=== PATIENT | female | born 1990 | race Caucasian/White ===

== ENCOUNTER 2016-05-09 05:49 | Emergency (ER) | payer OTHER ==
[2016-05-09 06:02] VITALS: O2SAT 98
[2016-05-09] MEDS ORDERED: BENADRYL 50 MG/ML IV ONE (06:05)
[2016-05-09] MEDS ORDERED: Sodium Chloride 0.9% 1000 ML 1,000 ML IV STA (06:05)
[2016-05-09] MEDS ORDERED: TORAdol 30 mg Injection IV ONE (06:05)
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
[2016-05-09] MEDS ORDERED: BENADRYL 50 MG/ML ONE (06:14)
[2016-05-09] MEDS ORDERED: TORAdol 30 mg Injection ONE (06:14)
[2016-05-09] MEDS ORDERED: Sodium Chloride 0.9% 1000 ML 1,000 ML ONE (06:15)
[2016-05-09 06:59] VITALS: BP 106/78; PULSE 68
[2016-05-09] MEDS ORDERED: NORCO 5/325 MG ONE (07:05)
[2016-05-09] MEDS: NORCO 5/325 MG PO ONE ×2 (07:06→07:23)
== END 2016-05-09 07:15 | disposition home or self-care (01) ==
LOC: ED 05:49
DX: G43.909 Migraine, unspecified, not intractable, without status migrainosus (principal)
CPT/HCPCS: 36000; 36415; 84703; 96360; 96374; 96375; 99283; J1200; J1885

== ENCOUNTER 2016-08-29 21:52 | Emergency (ER) | payer MEDICAID ==
--- NOTE | 2016-08-29 22:47 | ERPHSYRPT ---
- History of Present Illness Time Seen by Provider: 08/29/16 22:34 Historian: patient Exam Limitations: no limitations Patient Subjective Stated Complaint: pt states she has been having abd pain for the past 2-3 days. states it feels like labor pain at times. Triage Nursing Assessment: pt alert and oriented, answers questions approp. pt ambulatory with steady gait noted. respirations nonlabored with lungs cta. bowel sounds present in all 4 quads. heart tones to be done. Physician History: The patient is a female at 17 weeks complaining of 3 days of abdominal cramping with some sharp episodes of pain. She states "something is big wrong. " The patient has been vomiting 2-3 times daily. She takes no Phenergan or Zofran. Her mother thinks she might be dehydrated. Timing/Duration: day(s) (3) Activities at Onset: none Quality: cramping, sharpness Abdominal Pain Onset Location: RUQ, LUQ Pain Radiation: no radiation Severity of Pain-Max: mild Severity of Pain-Current: mild Modifying Factors: Improves With: nothing Associated Symptoms: nausea, vomiting Previous symptoms: different symptoms Allergies/Adverse Reactions: codeine [Codeine] Adverse Reaction (Intermediate, Verified 08/29/16 22:31) Vomiting PT STATES SHE CAN TAKE LORTABS WITHOUT PROBLEMS. Home Medications: No Home Meds 1 [facility] UD 12/10/13 [History] Hx Tetanus, Diphtheria Vaccination/Date Given: Yes Hx Influenza Vaccination/Date Given: No Hx Pneumococcal Vaccination/Date Given: No Immunizations Up to Date: Yes - Review of Systems Constitutional: No Fever, No Chills Eyes: No Symptoms Ears, Nose, & Throat: No Symptoms Respiratory: No Cough, No Dyspnea Cardiac: No Chest Pain, No Edema, No Syncope Abdominal/Gastrointestinal: Abdominal Pain, Vomiting Genitourinary Symptoms: No Dysuria Musculoskeletal: No Back Pain, No Neck Pain Skin: No Rash Neurological: No Dizziness, No Focal Weakness, No Sensory Changes Psychological: No Symptoms Endocrine: No Symptoms Hematologic/Lymphatic: No Symptoms Immunological/Allergic: No Symptoms All Other Systems: Reviewed and Negative - Past Medical History Pertinent Past Medical History: No Neurological History: No Pertinent History ENT History: No Pertinent History Cardiac History: No Pertinent History Respiratory History: No Pertinent History Endocrine Medical History: No Pertinent History Musculoskeletal History: No Pertinent History GI Medical History: No Pertinent History History: No Pertinent History Psycho-Social History: No Pertinent History Female Reproductive Disorders: No Pertinent History Other Medical History: over active lymph nodes - Past Surgical History Past Surgical History: Yes Neuro Surgical History: No Pertinent History Cardiac: No Pertinent History Respiratory: No Pertinent History Gastrointestinal: No Pertinent History Genitourinary: No Pertinent History Musculoskeletal: No Pertinent History Female Surgical History: Dilation & Curettage, Section, Other Other Surgical History: LYMPH NODE REMOVAL. TONSILLECTOMY - Social History Smoking Status: Current every day smoker How long have you smoked: YRS Exposure to second hand smoke: Yes Drug Use: none Patient Lives Alone: No - Female History Hx Now: No Expected Date of Delivery: 02/04/17 Gestational Age: 17 weeks - Nursing Vital Signs Nursing Vital Signs: Initial Vital Signs Temperature 98.6 F Temperature Source Oral Pulse Rate 80 Respiratory Rate 16 Blood Pressure [Right Arm] 129/78 Pain Intensity 10 - Physical Exam General Appearance: no apparent distress, alert Eye Exam: PERRL/EOMI, eyes nml inspection Ears, Nose, Throat Exam: normal ENT inspection, pharynx normal, moist mucous membranes Neck Exam: normal inspection, non-tender, supple, full range of motion Respiratory Exam: normal breath sounds, lungs clear, No respiratory distress Cardiovascular Exam: regular rate/rhythm, normal heart sounds Gastrointestinal/Abdomen Exam: tenderness (RUQ and LUQ) Pelvic Exam: not done Rectal Exam: not done Back Exam: normal inspection, normal range of motion, No CVA tenderness, No vertebral tenderness Extremity Exam: normal inspection, normal range of motion, pelvis stable Neurologic Exam: alert, oriented x 3, cooperative, normal mood/affect, nml cerebellar function, sensation nml, No motor deficits Skin Exam: normal color, warm, dry SpO2 Interpretation: normal SpO2: 97 Oxygen Delivery: Room Air Ordered Tests: Active Orders 24 hr Category Date Time Status Clean Catch Urine Specimen STAT Care 08/29/16 23:14 Active Heart Tones-ED STAT Care 08/29/16 23:01 Active IV Insertion STAT Care 08/29/16 23:01 Active BMP Stat Lab 08/29/16 23:13 Completed CBC W DIFF Stat Lab 08/29/16 23:13 Completed UA W/ MICROSCOPIC Stat Lab 08/29/16 23:13 Completed Medication Summary Discontinued Medications Generic Name Dose Route Start Last Admin Trade Name Freq PRN Reason Stop Dose Admin Sodium Chloride 1,000 mls @ 999 mls/hr 08/29/16 23:01 08/29/16 23:14 Sodium Chloride 0.9% 1000 Ml IV 08/30/16 00:01 999 mls/hr .Q1H1M STA Administration Sodium Chloride Confirm 08/29/16 23:04 Sodium Chloride 0.9% 1000 Ml Administered 08/29/16 23:05 Dose 1,000 mls @ ud .ROUTE .STK-MED ONE Lab/Rad Data: Laboratory Result Diagrams 08/29/16 23:13 08/29/16 23:13 Laboratory Results 08/29/16 08/29/16 08/29/16 Range/Units 23:13 23:13 23:13 WBC 10.7 H (4.0-10.5) K/mm3 RBC 3.78 L (4.1-5.4) M/mm3 Hgb 12.2 (12.0-16.0) gm/dl Hct 35.6 (35-47) % MCV 94.2 (78-100) fl MCH 32.2 H (26-32) pg MCHC 34.3 (32-36) g/dl RDW 13.1 (11.5-14.0) % Plt Count 250 (150-450) K/mm3 MPV 9.5 (6-9.5) fl Gran % 74.3 H (36.0-66.0) % Lymphocytes % 18.5 L (24.0-44.0) % Monocytes % 5.6 (0.0-12.0) % Eosinophils % 1.5 (0.00-5.0) % Basophils % 0.1 (0.0-0.4) % Basophils # 0.01 (0-0.4) Sodium 139 (136-145) mEq/L Potassium 3.6 (3.5-5.1) mEq/L Chloride 105 (98-107) mEq/L Carbon Dioxide 24.6 (21-32) mEq/L Anion Gap 13.1 (5-15) MEQ/L BUN 5 L (9-20) mg/dL Creatinine 0.44 L (0.55-1.30) mg/dl Estimated GFR > 60 ML/MIN Glucose 88 (70-110) MG/DL Calcium 8.6 (8.5-10.1) mg/dL Ur Collection Type CLEAN CATCH Urine Color YELLOW (YELLOW) Urine Appearance SLIGHTLY CLOUDY (CLEAR) Urine pH 6.5 (5-6) Ur Specific [place] 1.015 (1.005-1.025) Urine Protein NEGATIVE (Negative) Urine Glucose (UA) NEGATIVE (NEGATIVE) mg/dL Urine Ketones NEGATIVE (NEGATIVE) Urine Nitrite NEGATIVE (NEGATIVE) Urine Bilirubin NEGATIVE (NEGATIVE) Urine Urobilinogen 0.2 (0-1) mg/dL Urine WBC (Auto) TRACE (NEGATIVE) Urine RBC (Auto) NEGATIVE (0-5) Mike/ul Urine Microscopic RBC 2-5 (0-2) /HPF Urine Microscopic WBC 5-10 (0-5) /HPF Ur Epithelial Cells MANY (FEW) /HPF Urine Bacteria MODERATE (NEGATIVE) /HPF Urine Mucus SLIGHT (NEGATIVE) /HPF Specimen Received 08/29/165 - Progress Progress: improved Progress Note: 08/29/16 23:02 FHT steady and strong at 154 BPM. 08/30/16 00:03 After 1 L of normal saline IV fluids, the patient is feeling better. Patient wishes to go home. She will contact Dr. Lee in the morning if needed. Counseled pt/family regarding: lab results, diagnosis, need for follow-up - Departure Time of Disposition: 00:05 Departure Disposition: Home Clinical Impression: Dehydration, , Abdominal pain Condition: Stable Critical Care Time: No Additional Instructions: You have mild dehydration and abdominal cramping and pain. You were given 1 L of normal saline by IV in the ER. You declined Zofran and Phenergan. Contact Dr. Lee tomorrow morning for follow-up.
[2016-08-29] MEDS ORDERED: Sodium Chloride 0.9% 1000 ML 1,000 ML IV STA (23:01)
[2016-08-29] MEDS ORDERED: Sodium Chloride 0.9% 1000 ML 1,000 ML ONE (23:04)
[2016-08-29 23:17] LABS: BASOPHIL % 0.1 % (0.0-0.4); Eosinophil % 1.5 % (0.00-5.0); Granulocytes % 74.3 % (36.0-66.0); Lymphocytes % 18.5 % (24.0-44.0); Mean Cell Volume 94.2 fl (78-100); Mean Corpuscular Hemoglobin 32.2 pg (26-32); Mean Platelet Volume 9.5 fl (6-9.5); Monocytes % 5.6 % (0.0-12.0); Platelet Count 250 K/mm3 (150-450); Red Blood Count 3.78 M/mm3 (4.1-5.4); Red Cell Distribution Width 13.1 % (11.5-14.0); White Blood Count 10.7 K/mm3 (4.0-10.5)
[2016-08-29 23:30] LABS: Collection Type CLEAN CATCH
[2016-08-29 23:31] LABS: ANION GAP 13.1 MEQ/L (5-15); BLOOD UREA NITROGEN 5 mg/dL (9-20); Bacteria MODERATE /HPF (NEGATIVE); CHLORIDE 105 mEq/L (98-107); COMPLETE URINE MICROSCOPIC? YES; Carbon Dioxide 24.6 mEq/L (21-32); Epithelial Cells MANY /HPF (FEW); Glucose 88 MG/DL (70-110); Mucus SLIGHT /HPF (NEGATIVE); Ph 6.5 (5-6); Potassium 3.6 mEq/L (3.5-5.1); SODIUM 139 mEq/L (136-145)
[2016-08-30 00:07] VITALS: O2SAT 97
[2016-08-30 00:27] VITALS: BP 120/84; PULSE 82
== END 2016-08-30 00:25 | disposition home or self-care (01) ==
LOC: ED 21:52
DX: O21.1 Hyperemesis gravidarum with metabolic disturbance (principal); Z3A.17 17 weeks gestation of pregnancy; E86.0 Dehydration; R10.11 Right upper quadrant pain; R10.12 Left upper quadrant pain; R10.13 Epigastric pain
CPT/HCPCS: 36000; 36415; 80048; 81000; 85025; 96360; 99284

== ENCOUNTER 2016-12-13 17:05 | Observation (INO) | payer MEDICAID ==
[2016-12-13 17:56] VITALS: O2SAT 97
[2016-12-13] MEDS ORDERED: Celestone Soluspan 6MG/ML IM SCH (18:45)
[2016-12-13 19:18] LABS: Bilirubin NEGATIVE (NEGATIVE); Blood NEGATIVE Ery/ul (0-5); COMPLETE URINE MICROSCOPIC? NO; Collection Type CLEAN CATCH; Glucose NEGATIVE (NEGATIVE); Leukocyte Esterase NEGATIVE (NEGATIVE)
[2016-12-13] MEDS ORDERED: MAG-OX 400 PO SCH (21:00)
[2016-12-13] MEDS ORDERED: Ambien 10 MG PO SCH (22:00)
[2016-12-14 08:14] VITALS: BP 117/60; PULSE 86
--- NOTE | 2016-12-14 08:59 | XRAY ---
Indication: Contractions. Evaluate cervical length. Limited transvaginal pelvic ultrasound performed to evaluate cervical length. Cervix is closed and measures 4.1 cm. Comment: Preliminary report was given.
== END 2016-12-14 09:28 | disposition home or self-care (01) ==
LOC: OB 17:05 → UNDODISOB 12-14 08:55
PROVIDERS: ADMIT Family Medicine; ATTEND Family Medicine
DX: Z34.83 Encounter for supervision of other normal pregnancy, third trimester (principal)
CPT/HCPCS: 36415; 76817; 80307; 81002; 83735; 96372; G0378; J0702; A9270-GY

== ENCOUNTER 2017-01-06 18:31 | Observation (INO) | payer MEDICAID ==
[2017-01-06 20:16] VITALS: O2SAT 88
[2017-01-06 20:36] LABS: Bilirubin NEGATIVE (NEGATIVE); Blood NEGATIVE Ery/ul (0-5); Collection Type CLEAN CATCH; Glucose NEGATIVE (NEGATIVE); Leukocyte Esterase NEGATIVE (NEGATIVE)
[2017-01-06 20:37] LABS: COMPLETE URINE MICROSCOPIC? NO
[2017-01-06 21:10] VITALS: BP 121/71
[2017-01-06] MEDS ORDERED: PROCARDIA 10 MG PO STA (21:10)
[2017-01-06] MEDS ORDERED: Ambien 5 MG Tablet PO SCH (23:00)
[2017-01-06] MEDS ORDERED: Ambien 5 MG Tablet ONE (23:50)
[2017-01-07] MEDS ORDERED: PATIENT OWN MEDICATION PO SCH (10:00)
[2017-01-07] MEDS ORDERED: Ambien 5 MG Tablet PO ONE (23:51)
== END 2017-01-07 08:55 | disposition home or self-care (01) ==
LOC: MED SURG 18:31 → OB 18:31
PROVIDERS: ADMIT Family Medicine; ATTEND Family Medicine
DX: Z34.83 Encounter for supervision of other normal pregnancy, third trimester (principal)
CPT/HCPCS: 80307; 81002; G0378; A9270-GY

== ENCOUNTER 2017-01-31 05:06 | Inpatient (IN) | payer MEDICAID ==
[2017-01-31] MEDS ORDERED: Lactated Ringers 1,000 ML IV ONE ×2 (05:27→09:05)
[2017-01-31] MEDS ORDERED: Reglan 10 MG/2 ML IV SCH (05:30)
[2017-01-31] MEDS ORDERED: Pepcid 20 MG VIAL IV SCH (05:30)
[2017-01-31] MEDS ORDERED: Lactated Ringers 1,000 ML IV SCH (05:30)
[2017-01-31] MEDS ORDERED: BICITRA 30 ML CUP PO SCH (05:30)
[2017-01-31 05:47] LABS: Mean Cell Volume 96.1 fl (78-100); Mean Corpuscular Hemoglobin 33.3 pg (26-32); Mean Platelet Volume 10.2 fl (6-9.5); Platelet Count 263 K/mm3 (150-450); Red Blood Count 3.84 M/mm3 (4.1-5.4); Red Cell Distribution Width 14.2 % (11.5-14.0); White Blood Count 14.5 K/mm3 (4.0-10.5)
[2017-01-31 06:05] LABS: INR 0.96 (0.8-3.0); PROTIME 10.7 SECONDS (9.95-12.35)
[2017-01-31 06:07] LABS: PTT 27.3 SECONDS (25.3-37.0)
[2017-01-31] MEDS ORDERED: KEFZOL 1 GM ONE (06:21)
[2017-01-31 06:42] LABS: Bacteria MODERATE /HPF (NEGATIVE); Bilirubin NEGATIVE (NEGATIVE); Blood 50 Ery/ul (0-5); COMPLETE URINE MICROSCOPIC? YES; Collection Type VOID; Epithelial Cells FEW /HPF (FEW); Glucose NEGATIVE (NEGATIVE); Leukocyte Esterase 2+ (NEGATIVE); Mucus SLIGHT /HPF (NEGATIVE)
[2017-01-31] MEDS ORDERED: CLARITIN 10 MG PO PRN (09:00)
[2017-01-31] MEDS ORDERED: BENADRYL 50 MG/ML IV PRN (09:00)
[2017-01-31] MEDS ORDERED: Narcan 0.4 MG/ML IV PRN (09:00)
[2017-01-31] MEDS ORDERED: MORPHINE SULFATE 2 MG INJ IV PRN (09:00)
[2017-01-31] MEDS ORDERED: Zofran 4 MG/2 ML VIAL IV PRN (09:00)
[2017-01-31] MEDS ORDERED: Nubain 10 MG/ML IV PRN (09:00)
[2017-01-31] MEDS ORDERED: DEMEROL 50 MG IV PRN (09:00)
[2017-01-31] MEDS ORDERED: HOLD NARCOTIC ANALGESICS AND SEDATIVES X24 HR MC PRN (09:00)
[2017-01-31 09:46] LABS: Bilirubin NEGATIVE (NEGATIVE); Collection Type CATH; Glucose NEGATIVE (NEGATIVE); Leukocyte Esterase TRACE (NEGATIVE)
[2017-01-31] MEDS ORDERED: Restoril 15 MG PO PRN (10:00)
[2017-01-31] MEDS ORDERED: Adacel Vial IM ONE (10:00)
[2017-01-31] MEDS ORDERED: Anucort-HC SUPPOSITORY PR PRN (10:00)
[2017-01-31] MEDS ORDERED: Mylicon 80MG PO PRN (10:00)
[2017-01-31] MEDS ORDERED: CORTISONE 1% CREAM TP PRN (10:00)
[2017-01-31] MEDS ORDERED: Ambien 10 MG PO PRN (10:00)
[2017-01-31 10:11] LABS: COMPLETE URINE MICROSCOPIC? YES
--- NOTE | 2017-01-31 11:26 | OP ---
SURGERY DATE/TIME: 01/31/201711 PREOPERATIVE DIAGNOSES: 1) Term intrauterine . 2) Previous section. 3) Undesired fertility. POSTOPERATIVE DIAGNOSES: 1) Term intrauterine . 2) Previous section. 3) Undesired fertility. 4) Delivered. PROCEDURES: 1) Repeat lower uterine segment transverse incision section. 2) Bilateral tubal ligation by partial salpingectomy. SURGEON: Dr. Lee. ANESTHESIA: Spinal. HISTORY: The patient is a 26 year old white female now presenting for elective repeat section. She is at term. She was appraised of the risks of the procedure including the risk of wound infection, bleeding requiring transfusion, possible injury to any intra-abdominal organs and a failure rate of the tubal procedure 1:300. The patient verbalized her understanding and desired to have the procedure performed. DESCRIPTION OF PROCEDURE: The patient was prepped and draped in the supine position. After adequate regional anesthesia was confirmed, a Pfannenstiel incision was made over the previous scar and carried down sharply through the fascia which was divided in a horizontal fashion. The rectus muscles were then bluntly and sharply dissected away from the overlying fascia and 0bluntly retracted laterally. The peritoneal cavity was then entered. A bladder flap was developed and the bladder was retracted inferiorly. The uterus was scored in a horizontal fashion and entered in the midline and extended with bandage scissors. A white male was delivered through the abdominal wound. The cord was doubly clamped and divided between the clamps. The baby was handed off for further care. The placenta was then manually removed from the uterus. The uterus was exteriorized and wrapped in moist gauze. The wound edges were reapproximated using 1-0 chromic suture in a running, interlocking fashion. The left fallopian tube was then identified and elevated with Rienzi clamp. Hemostat was passed in avascular section of mesosalpinx the tube was tied on either side of the side of the elevated area and the interceding section was then excised. The exposed edges of the tube were cauterized using Bovie. The right tube was then similarly treated. The uterus was then replaced in the abdominal cavity after the cul-de-sac area was swabbed clear of blood and amniotic fluid. Paracolic gutters were also swabbed clear of blood of amniotic fluid. The peritoneum was then repaired using 3-0 chromic sutures in a running fashion. The fascia was repaired using 0 Vicryl suture in running fashion and the skin edges were reapproximated using 4-0 Vicryl sutures in subcuticular fashion and reinforced with Steri-Strips. The sponge, needle and instrument counts were reported as correct at the end of the procedure. The patient received 2 gm of Cefazolin intraoperatively after the cord was clamped. Estimated blood loss was 300 cc. The patient was taken back to the recovery room in good condition.
[2017-01-31] MEDS: FERREX 150 PO SCH (11:29)
[2017-01-31] MEDS: Colace 100 MG PO SCH ×2 (11:29→22:04)
[2017-01-31] MEDS: PERCOCET TABLET 5/325MG PO PRN ×2 (11:39→23:46)
[2017-01-31] MEDS: Dextrose 5%-Lr IV Solution 1000 ML 1,000 ML IV SCH (15:00)
[2017-01-31] MEDS ORDERED: SUBLIMAZE 100 MCG/2 ML IV ONE (16:10)
[2017-01-31] MEDS ORDERED: MORPHINE SULFATE 10 MG/ML IV ONE (16:10)
[2017-01-31] MEDS ORDERED: Zofran 4 MG/2 ML VIAL IV ONE (16:13)
[2017-01-31] MEDS ORDERED: Decadron 4 MG INJ IV ONE (16:13)
[2017-01-31] MEDS ORDERED: Pitocin 10 UNITS/ML IV ONE (16:13)
[2017-01-31] MEDS ORDERED: Naropin 0.5% 30 ML VIAL IJ ONE (16:13)
[2017-01-31] MEDS ORDERED: Phenergan 25 MG INJ IV ONE (16:56)
[2017-01-31] MEDS: NICODERM CQ 14 MG TOP SCH (22:04)
[2017-02-01] MEDS: Dextrose 5%-Lr IV Solution 1000 ML 1,000 ML IV SCH (00:17)
[2017-02-01] MEDS: MOTRIN 400 MG PO PRN ×2 (05:19→18:09)
[2017-02-01 05:29] LABS: Mean Cell Volume 99.1 fl (78-100); Mean Corpuscular Hemoglobin 32.8 pg (26-32); Mean Platelet Volume 9.8 fl (6-9.5); Platelet Count 227 K/mm3 (150-450); Red Cell Distribution Width 14.4 % (11.5-14.0)
[2017-02-01] MEDS: PERCOCET TABLET 5/325MG PO PRN (07:30)
[2017-02-01] MEDS ORDERED: Phenergan 25 MG INJ IM PRN (09:00)
[2017-02-01] MEDS ORDERED: DEMEROL 75 MG IM PRN (09:00)
[2017-02-01] MEDS: FERREX 150 PO SCH (11:34)
[2017-02-01] MEDS: Colace 100 MG PO SCH ×2 (11:34→22:10)
[2017-02-01] MEDS: NORCO 5/325 MG PO PRN ×2 (15:29→19:49)
[2017-02-01 20:12] VITALS: O2SAT 91
[2017-02-01] MEDS: NICODERM CQ 14 MG TOP SCH (22:10)
[2017-02-02] MEDS: NORCO 5/325 MG PO PRN ×3 (05:05→11:58)
[2017-02-02] MEDS: MOTRIN 400 MG PO PRN (07:49)
--- NOTE | 2017-02-02 08:16 | DS ---
DISCHARGE DIAGNOSIS: SECTION DELIVERY TERM INTRAUTERINE . HOSPITAL COURSE: The patient is a 26 year-old white female presented for elective repeat section. She also wished to have a tubal ligation performed and this was done on 01/31/2017. The patient has done well postoperatively. She has been afebrile with stable vital signs. The wound has looked good. She is felt to be ready for discharge home by the morning of 02/02/2017. Discharge plans are for her to follow up in the office in one week. She was given Chantix for her attempts to stop smoking as well as nicotine patch. She was given [place] for pain relief. She was instructed to call us if she has any problems in the interim.
[2017-02-02 09:20] VITALS: BP 134/82; PULSE 88
[2017-02-02] MEDS: FERREX 150 PO SCH (10:11)
[2017-02-02] MEDS: Colace 100 MG PO SCH (10:11)
== END 2017-02-02 12:45 | disposition home or self-care (01) | DRG 766 ==
LOC: OB 05:06
PROVIDERS: ADMIT Family Medicine; ATTEND Family Medicine
PROC: 0UB70ZZ Excision of Bilateral Fallopian Tubes, Open Approach (ICD-10-PCS; principal; 2017-01-31)
PROC: 10D00Z1 Extraction of Products of Conception, Low, Open Approach (ICD-10-PCS; 2017-01-31)
DX: O34.211 Maternal care for low transverse scar from previous cesarean delivery (principal); Z3A.39 39 weeks gestation of pregnancy; Z37.0 Single live birth; Z30.2 Encounter for sterilization
CPT/HCPCS: 01961; 36415; 64425; 76942; 80307; 81000; 81002; 85027; 85610; 85730; 86850; 86900; 86901; 87086; 88302; 90471; 90715; 94799; J0690; J1100; J2270; J2405; J2550; J2590; J2795; J3010; L0625; A9270-GY

== ENCOUNTER 2017-10-05 17:57 | Emergency (ER) | payer OTHER ==
[2017-10-05 18:12] VITALS: BP 101/82
--- NOTE | 2017-10-05 18:42 | ERPHSYRPT ---
- History of Present Illness Time Seen by Provider: 10/05/17 18:32 Source: patient Exam Limitations: no limitations Patient Subjective Stated Complaint: pt reports she turned quick[place] and accidently hit her rigth hand on a machete-reports pain and lac Triage Nursing Assessment: pt presents to ed anxious upset and holding hands- hands clearned and lac to finger of right hand noted with ableeding controlled Physician History: This is a 27-year-old white female she arrives with complaint of a laceration to her dorsal distal right fourth finger 20 minutes prior to arrival. she states that she accidentally struck her finger on a machete. She has no problems moving her finger sensation is intact. Patient's last tetanus was in January 2017. Past surgical history includes D&C, , lymph node, tonsillectomy and adenoidectomy Occurred: just prior to arrival (22 minutes prior to arrival) Method of Injury: incised (accidentally struck on a machete) Severity of Pain-Max: mild Severity of Pain-Current: mild Extremities Pain Location: 4th finger: right (rright dorsal distal fourth finger ) Modifying Factors: Improves With: nothing Associated Symptoms: none Allergies/Adverse Reactions: codeine [Codeine] Adverse Reaction (Mild, Verified 10/05/17 18:12) Vomiting Home Medications: No Reportable Medications [No Reported Medications] 02/01/17 [History] Hx Tetanus, Diphtheria Vaccination/Date Given: No Hx Influenza Vaccination/Date Given: Yes Hx Pneumococcal Vaccination/Date Given: No Immunizations Up to Date: Yes - Review of Systems Constitutional: No Fever, No Chills Eyes: No Symptoms Ears, Nose, & Throat: No Symptoms Respiratory: No Cough, No Dyspnea Cardiac: No Chest Pain, No Edema, No Syncope Abdominal/Gastrointestinal: No Abdominal Pain, No Nausea, No Vomiting, No Diarrhea Genitourinary Symptoms: No Dysuria Musculoskeletal: No Back Pain, No Neck Pain Skin: Other (1 cm laceration right dorsal distal fourth finger) Neurological: No Dizziness, No Focal Weakness, No Sensory Changes Psychological: No Symptoms Endocrine: No Symptoms All Other Systems: Reviewed and Negative - Past Medical History Pertinent Past Medical History: No Neurological History: No Pertinent History ENT History: No Pertinent History Cardiac History: No Pertinent History Respiratory History: No Pertinent History Endocrine Medical History: No Pertinent History Musculoskeletal History: No Pertinent History GI Medical History: No Pertinent History History: No Pertinent History Psycho-Social History: No Pertinent History Female Reproductive Disorders: No Pertinent History Other Medical History: over active lymph nodes - Past Surgical History Past Surgical History: Yes Neuro Surgical History: No Pertinent History Cardiac: No Pertinent History Respiratory: No Pertinent History Gastrointestinal: No Pertinent History Genitourinary: No Pertinent History Musculoskeletal: No Pertinent History Female Surgical History: Dilation & Curettage, Section, Other Other Surgical History: LYMPH NODE REMOVAL. TONSILLECTOMY. D&C - Social History Smoking Status: Current every day smoker How long have you smoked: yrs Exposure to second hand smoke: No Drug Use: none Patient Lives Alone: No - Female History Hx Last Menstrual Period: yesterday Hx Now: No - Nursing Vital Signs Nursing Vital Signs: Initial Vital Signs Temperature 97.8 F 10/05/17 18:08 Pulse Rate 74 10/05/17 18:08 Respiratory Rate 18 10/05/17 18:08 Blood Pressure 101/82 10/05/17 18:08 O2 Sat by Pulse Oximetry 97 10/05/17 18:08 Pain Scale Pain Intensity 8 - Physical Exam General Appearance: alert Eyes, Ears, Nose, Throat Exam: moist mucous membranes Neck Exam: non-tender, supple Cardiovascular/Respiratory Exam: chest non-tender, normal breath sounds, regular rate/rhythm, no respiratory distress Abdominal Exam: non-tender, No guarding Back Exam: normal inspection, No vertebral tenderness Shoulder Exam: normal inspection, non-tender, no evidence of injury, normal ROM Elbow/Forearm Exam: normal inspection, non-tender, no evidence of injury, normal ROM Wrist Exam: normal inspection, non-tender, no evidence of injury, normal ROM Hand Exam: laceration (1 cm laceration right dorsal distal fourth finger) Neuro/Tendon Exam: normal sensation, normal motor functions Mental Status Exam: alert, oriented x 3, cooperative SpO2 Interpretation: normal (97%) SpO2: 97 Oxygen Delivery: Room Air - Course Nursing assessment & vital signs reviewed: Yes Ordered Tests: Active Orders 24 hr Category Date Time Status Wound Care STAT Care 10/05/17 18:36 Active - Progress Progress: improved Progress Note: 10/05/17 18:41 27-year-old white female arrives with complaint of laceration to the right dorsal distal fourth finger she accidentally hit it on a machete approximately 20 minutes prior to arrival. She has full range of motion to all fingers sensation intact to all fingers she has a 1 cm laceration to the dorsal distal fourth finger. Dizzy good capillary refill to all fingers. Patient was not sure of her last tetanus however records show that she had a tetanus here in the emergency room January 2017. Nurses have clean the area. Will have nurses go ahead and sterilely scrubbed it and applied Dermabond patient will be able to be released. - Departure Time of Disposition: 18:42 Departure Disposition: Home Clinical Impression: Finger laceration Qualifiers: Encounter type: initial encounter Finger: ring finger Damage to nail status: without damage Foreign body presence: without foreign body Laterality: right Qualified Code(s): S61.214A - Laceration without foreign body of right ring finger without damage to nail, initial encounter Condition: Fair Critical Care Time: No Referrals: ROSSI COOPER [Primary Care Provider] - Instructions: Laceration Repair With Glue (DC) Additional Instructions: Return home. Keep area clean and dry. Do not soak area. Do not apply ointments to area. Follow-up with your family doctor or return if signs of infection or problems. Tylenol every 4 hours as needed for pain.
[2017-10-05 19:07] VITALS: PULSE 97; O2SAT 99
== END 2017-10-05 19:08 | disposition home or self-care (01) ==
LOC: ED 17:57
DX: S61.214A Laceration without foreign body of right ring finger without damage to nail, initial encounter (principal); Z72.0 Tobacco use; W26.0XXA Contact with knife, initial encounter; W45.8XXA Other foreign body or object entering through skin, initial encounter; W22.8XXA Striking against or struck by other objects, initial encounter
CPT/HCPCS: 99283

== ENCOUNTER 2017-11-27 17:50 | Emergency (ER) | payer OTHER ==
[2017-11-27 18:51] LABS: Appearance CLOUDY (CLEAR); Bilirubin NEGATIVE (NEGATIVE); Blood 50 Ery/ul (0-5); Glucose NEGATIVE (NEGATIVE); Ketones NEGATIVE (NEGATIVE); Leukocyte Esterase 2+ (NEGATIVE); Nitrite NEGATIVE (NEGATIVE); Protein,Urine Dip 30 (Negative); Urobilinogen NORMAL mg/dL (0-1)
[2017-11-27 18:52] LABS: Bacteria MODERATE /HPF (NEGATIVE); Epithelial Cells FEW /HPF (FEW); RBC 25-50 /HPF (0-2); WBC 25-50 /HPF (0-5)
[2017-11-27] MEDS ORDERED: TORAdol 30 mg Injection IV ONE (19:14)
[2017-11-27] MEDS ORDERED: Sodium Chloride 0.9% 1000 ML 1,000 ML IV STA (19:14)
--- NOTE | 2017-11-27 19:20 | ERPHSYRPT ---
- History of Present Illness Time Seen by Provider: 11/27/17 19:10 Historian: patient Exam Limitations: no limitations Patient Subjective Stated Complaint: pt here for bilat, flank pain for 2 days worse the lst 5 hours,buring with urination Triage Nursing Assessment: pt alert, resp easy, skin w/d/p, abd soft Physician History: 27-year-old white female arrives with Cipro give Tylenol pain bilateral flank pain symptoms times several weeks. She does state that she was seen by her family doctor placed on Flagyl about a week ago. Patient states she does have some dysuria no melena no hematochezia no diarrhea no vomiting, Past medical history includes over active lymph node past surgical history includes D&C, , lymph node removed, tubal ligation. Timing/Duration: day(s) (2 days) Activities at Onset: none Quality: cramping Abdominal Pain Onset Location: suprapubic, other (bilateral flanks) Pain Radiation: no radiation Severity of Pain-Max: moderate Severity of Pain-Current: moderate Modifying Factors: Improves With: palpation, urinating. Worsens With: analgesics, antacids, breathing, coughing, defecating, eating, exercise, lying down, rest, vomiting, position, walking Associated Symptoms: back (bilateral flank pain), No chest pain, No diaphoresis , No diarrhea, No fever/chills, No fatigue, No headache, No heartburn, No loss of appetite, No nausea, No neck pain, No rash, No shortness of breath, No syncope, No vomiting, No weakness Previous symptoms: no prior history Allergies/Adverse Reactions: codeine [Codeine] Adverse Reaction (Mild, Verified 11/27/17 18:19) Vomiting Home Medications: Loratadine 10 mg [Claritin 10 mg] 10 mg DAILY 11/27/17 [History] Metronidazole [Flagyl] 250 mg TID 11/27/17 [History] Hx Tetanus, Diphtheria Vaccination/Date Given: No Hx Influenza Vaccination/Date Given: No Hx Pneumococcal Vaccination/Date Given: No Immunizations Up to Date: Yes - Review of Systems Constitutional: No Fever, No Chills Eyes: No Symptoms Ears, Nose, & Throat: No Symptoms Respiratory: No Cough, No Dyspnea Cardiac: No Chest Pain, No Edema, No Syncope Abdominal/Gastrointestinal: Abdominal Pain (Bilateral lower abdominal pain, suprapubic pain), No Vomiting, No Diarrhea, No Constipation, No Hematemesis, No Hematochezia, No Melena, No Dysphagia Genitourinary Symptoms: Dysuria, No Frequency, No Hematuria, No Hesitancy, No Incontinence, No Urgency, No Urinary Retention, No Flank Pain, No Menorrhagia, No , No Vaginal Bleeding, No Vaginal Discharge, No Vaginal Itching Musculoskeletal: No Back Pain, No Neck Pain Skin: No Rash Neurological: No Dizziness, No Focal Weakness, No Sensory Changes Psychological: No Symptoms Endocrine: No Symptoms All Other Systems: Reviewed and Negative - Past Medical History Pertinent Past Medical History: No Neurological History: No Pertinent History ENT History: No Pertinent History Cardiac History: No Pertinent History Respiratory History: No Pertinent History Endocrine Medical History: No Pertinent History Musculoskeletal History: No Pertinent History GI Medical History: No Pertinent History History: No Pertinent History Psycho-Social History: No Pertinent History Female Reproductive Disorders: No Pertinent History Other Medical History: over active lymph nodes - Past Surgical History Past Surgical History: Yes Neuro Surgical History: No Pertinent History Cardiac: No Pertinent History Respiratory: No Pertinent History Gastrointestinal: No Pertinent History Genitourinary: No Pertinent History Musculoskeletal: No Pertinent History Female Surgical History: Dilation & Curettage, Section, Other Other Surgical History: LYMPH NODE REMOVAL. TONSILLECTOMY. D&C - Social History Smoking Status: Current every day smoker How long have you smoked: yrs Exposure to second hand smoke: Yes Drug Use: none Patient Lives Alone: No - Female History Hx Last Menstrual Period: yesterday Hx Now: No - Nursing Vital Signs Nursing Vital Signs: Initial Vital Signs Temperature 97.7 F 11/27/17 18:14 Pulse Rate 95 H 11/27/17 18:14 Respiratory Rate 16 11/27/17 18:14 Blood Pressure 131/72 11/27/17 18:14 O2 Sat by Pulse Oximetry 98 11/27/17 18:14 Pain Scale Pain Intensity 5 - Physical Exam General Appearance: mild distress Eye Exam: PERRL/EOMI, eyes nml inspection Ears, Nose, Throat Exam: normal ENT inspection, pharynx normal, moist mucous membranes Neck Exam: normal inspection, non-tender, supple, full range of motion Respiratory Exam: normal breath sounds, lungs clear, No respiratory distress Cardiovascular Exam: regular rate/rhythm, normal heart sounds Gastrointestinal/Abdomen Exam: soft, normal bowel sounds, tenderness (bilateral lower abdominal tenderness), No distention, No mass, No guarding, No ecchymosis , No pulsatile mass, No rebound, No hernia, No hepatomegaly, No organomegaly, No splenomegaly Back Exam: normal range of motion, CVA tenderness (Bilateral flank pain with palpation), No vertebral tenderness, No rash, No decreased range of motion, No muscle spasm Extremity Exam: normal inspection, normal range of motion, pelvis stable Neurologic Exam: alert, oriented x 3, cooperative, roll winder II-XII nml as tested, normal mood/affect, nml cerebellar function, sensation nml, No motor deficits Skin Exam: normal color, warm, dry SpO2 Interpretation: normal (98%) SpO2: 98 Oxygen Delivery: Room Air - Course Nursing assessment & vital signs reviewed: Yes Ordered Tests: Active Orders 24 hr Category Date Time Status Clean Catch Urine Specimen STAT Care 11/27/17 18:22 Active IV Insertion STAT Care 11/27/17 19:14 Active AMYLASE Stat Lab 11/27/17 19:14 Completed CBC W DIFF Stat Lab 11/27/17 19:14 Completed CMP Stat Lab 11/27/17 19:14 Completed CULTURE,URINE Stat Lab 11/27/17 18:23 Received HCG QUALITATIVE,SERUM Stat Lab 11/27/17 Completed LIPASE Stat Lab 11/27/17 19:14 Completed UA W/ MICROSCOPIC Stat Lab 11/27/17 18:23 Completed Medication Summary Discontinued Medications Generic Name Dose Route Start Last Admin Trade Name Freq PRN Reason Stop Dose Admin Hydrocodone Bitart/Acetaminophen 2 tab 11/27/17 21:21 [place] 5/325 Mg PO 11/27/17 21:22 SENT HOME W/ PATIENT ONE Sodium Chloride 1,000 mls @ 999 mls/hr 11/27/17 19:14 11/27/17 20:57 Sodium Chloride 0.9% 1000 Ml IV 11/27/17 20:14 Infused .Q1H1M STA Infusion Sodium Chloride Confirm 11/27/17 19:24 Sodium Chloride 0.9% 1000 Ml Administered 11/27/17 19:25 Dose 1,000 mls @ ud .ROUTE .STK-MED ONE Ceftriaxone Sodium/Dextrose 1 g in 50 mls @ 100 mls/hr 11/27/17 19:47 20:58 Rocephin 1 Gm-D5w 50 Ml Bag IV 11/27/17 20:16 Infused STAT STA Infusion Ceftriaxone Sodium/Dextrose Confirm 11/27/17 19:49 Rocephin 1 Gm-D5w 50 Ml Bag Administered 11/27/17 19:50 Dose 1 g in 50 mls @ ud IV .STK-MED ONE Ketorolac Tromethamine 30 mg 11/27/17 19:14 11/27/17 19:30 Toradol 30 Mg Injection IV 11/27/17 19:15 30 mg STAT ONE Administration Ketorolac Tromethamine Confirm 11/27/17 19:24 Toradol 30 Mg Injection Administered 11/27/17 19:25 Dose 30 mg .ROUTE .STK-MED ONE Lab/Rad Data: Laboratory Result Diagrams 11/27/17 19:14 11/27/17 19:14 Laboratory Results 11/27/17 11/27/17 11/27/17 Range/Units Unknown 19:39 19:14 WBC (4.0-10.5) K/mm3 RBC (4.1-5.4) M/mm3 Hgb (12.0-16.0) gm/dl Hct (35-47) % MCV (78-100) fl MCH (26-32) pg MCHC (32-36) g/dl RDW (11.5-14.0) % Plt Count (150-450) K/mm3 MPV (6-9.5) fl Gran % (36.0-66.0) % Eos # (Auto) (0-0.5) Absolute Lymphs (auto) (1.0-4.6) Absolute Monos (auto) (0.0-1.3) Lymphocytes % (24.0-44.0) % Monocytes % (0.0-12.0) % Eosinophils % (0.00-5.0) % Basophils % (0.0-0.4) % Absolute Granulocytes (1.4-6.9) Basophils # (0-0.4) Sodium 141 (137-145) mmol/L Potassium 3.9 (3.5-5.1) mmol/L Chloride 107 (98-107) mmol/L Carbon Dioxide 26 (22-30) mmol/L Anion Gap 12.2 (5-15) MEQ/L BUN 9 (7-17) mg/dL Creatinine 0.62 (0.52-1.04) mg/dL Estimated GFR > 60.0 ML/MIN Glucose 109 H (74-106) mg/dL Calcium 9.7 (8.4-10.2) mg/dL Total Bilirubin 0.80 (0.2-1.3) mg/dL AST 25 (14-36) U/L ALT 37 H (0-35) U/L Alkaline Phosphatase 104 (38-126) U/L Serum Total Protein 7.1 (6.3-8.2) g/dL Albumin 4.5 (3.5-5.0) g/dL Amylase 62 (30-110) U/L Lipase 46 (23-300) U/L Serum , Qual NEGATIVE (Negative) Ur Collection Type Urine Color (YELLOW) Urine Appearance (CLEAR) Urine pH (5-6) Ur Specific [place] (1.005-1.025) Urine Protein (Negative) Urine Ketones (NEGATIVE) Urine Blood (0-5) Mike/ul Urine Nitrite (NEGATIVE) Urine Bilirubin (NEGATIVE) Urine Urobilinogen (0-1) mg/dL Ur Leukocyte Esterase (NEGATIVE) Urine Microscopic RBC (0-2) /HPF Urine Microscopic WBC (0-5) /HPF Ur Epithelial Cells (FEW) /HPF Urine Bacteria (NEGATIVE) /HPF Urine Culture Reflexed (NO) Urine Glucose (NEGATIVE) mg/dL Ur Chlamydia DNA Probe NEGATIVE Urine GC DNA Probe NEGATIVE Specimen Received 11/27/17 11/27/17 Range/Units 19:14 18:23 WBC 13.4 H (4.0-10.5) K/mm3 RBC 4.95 (4.1-5.4) M/mm3 Hgb 15.9 (12.0-16.0) gm/dl Hct 45.7 (35-47) % MCV 92.3 (78-100) fl MCH 32.1 H (26-32) pg MCHC 34.8 (32-36) g/dl RDW 13.0 (11.5-14.0) % Plt Count 237 (150-450) K/mm3 MPV 10.7 H (6-9.5) fl Gran % 85.4 H (36.0-66.0) % Eos # (Auto) 0.11 (0-0.5) Absolute Lymphs (auto) 1.29 (1.0-4.6) Absolute Monos (auto) 0.54 (0.0-1.3) Lymphocytes % 9.7 L (24.0-44.0) % Monocytes % 4.0 (0.0-12.0) % Eosinophils % 0.8 (0.00-5.0) % Basophils % 0.1 (0.0-0.4) % Absolute Granulocytes 11.39 H (1.4-6.9) Basophils # 0.02 (0-0.4) Sodium (137-145) mmol/L Potassium (3.5-5.1) mmol/L Chloride (98-107) mmol/L Carbon Dioxide (22-30) mmol/L Anion Gap (5-15) MEQ/L BUN (7-17) mg/dL Creatinine (0.52-1.04) mg/dL Estimated GFR ML/MIN Glucose (74-106) mg/dL Calcium (8.4-10.2) mg/dL Total Bilirubin (0.2-1.3) mg/dL AST (14-36) U/L ALT (0-35) U/L Alkaline Phosphatase (38-126) U/L Serum Total Protein (6.3-8.2) g/dL Albumin (3.5-5.0) g/dL Amylase (30-110) U/L Lipase (23-300) U/L Serum , Qual (Negative) Ur Collection Type VOID Urine Color YELLOW (YELLOW) Urine Appearance CLOUDY (CLEAR) Urine pH 6.0 (5-6) Ur Specific [place] 1.010 (1.005-1.025) Urine Protein 30 (Negative) Urine Ketones NEGATIVE (NEGATIVE) Urine Blood 50 (0-5) Mike/ul Urine Nitrite NEGATIVE (NEGATIVE) Urine Bilirubin NEGATIVE (NEGATIVE) Urine Urobilinogen NORMAL (0-1) mg/dL Ur Leukocyte Esterase 2+ (NEGATIVE) Urine Microscopic RBC 25-50 (0-2) /HPF Urine Microscopic WBC 25-50 (0-5) /HPF Ur Epithelial Cells FEW (FEW) /HPF Urine Bacteria MODERATE (NEGATIVE) /HPF Urine Culture Reflexed YES (NO) Urine Glucose NEGATIVE (NEGATIVE) mg/dL Ur Chlamydia DNA Probe Urine GC DNA Probe Specimen Received 11/27/17 1640 - Progress Progress: improved Progress Note: 11/27/17 19:54 27-year-old white female arrives with complaint of lower abdominal pain lower flank pain symptoms for 2 days she was seen by Dr. Lee and placed on Flagyl about a week ago. She does state she has urinary symptoms with dysuria she has no diarrhea no melena no hematochezia no vomiting. On physical examination the she is tender with palpation in the bilateral lower suprapubic region nontender with bilateral flanks. Urine shows 25-50 white cells 25-50 red cells in her urine. GC chlamydia swab is pending. Chemistry CBC is pending. Patient is receiving IV normal saline 1 L. Rocephin 1 g IV has been ordered. Inspect was reviewed only 1 prescription for a few pills which was obtained in January 2017 are noted. Patient is given Toradol for pain at this time 11/27/17 20:42 27-year-old white female arrives with bilateral lower and suprapubic abdominal pain symptoms for 2 days she has had dysuria and bilateral flank pain. Patient does have a white count of 13.4 hemoglobin 15.9 and a hematocrit of 45.7 she also has a urine that shows 25-50 white cells and 25 the 50 red cells per high-power field. Chemistry is essentially normal GC Chlamydia are pending. I have offered the patient to get a CT of her abdomen however she would prefer to be treated for her urinary tract infection with antibiotics and pain medications and fluids and follow-up with her family doctor. Patient has been given 1 g Rocephin IV. Toradol 30 mg IV. Awaiting GC/Chlamydia test. Plan on discharging patient with appropriate antibiotics once this is been received. She has recently seen her family doctor is taking Flagyl, - Departure Time of Disposition: 21:23 Departure Disposition: Home Clinical Impression: Abdominal pain Qualifiers: Abdominal location: lower abdomen, unspecified Qualified Code(s): R10.30 - Lower abdominal pain, unspecified UTI (urinary tract infection) Qualifiers: Urinary tract infection type: site unspecified Hematuria presence: with hematuria Qualified Code(s): N39.0 - Urinary tract infection, site not specified Condition: Fair Critical Care Time: No Additional Instructions: Return home. Plenty of fluids, clear fluids only 24-48 hours if abdominal pain nausea or vomiting. [place] 5/325 one orally every 4-6 hours as needed for pain #10. Him Bactrim DS one orally twice a day for 10 days. Follow-up with your family doctor, call tomorrow and make an appointment for recheck. Return for acute distress or for severe symptoms. Prescriptions: Hydrocodone/Acetaminophen [[place] 5-325 Tablet] 1 tab PO Q4-6HPRN PRN #10 tablet MDD 6 tablets PRN Reason: Pain Smz/Tmp Ds Tablet [Bactrim Ds Tablet] 1 tab PO BID #20 tablet
[2017-11-27] MEDS ORDERED: TORAdol 30 mg Injection ONE (19:24)
[2017-11-27] MEDS ORDERED: Sodium Chloride 0.9% 1000 ML 1,000 ML ONE (19:24)
[2017-11-27] MEDS ORDERED: ROCEPHIN 1 Gm-D5w 50 ml Bag** 1 G/50 ML IVPB IV STA (19:47)
[2017-11-27] MEDS ORDERED: ROCEPHIN 1 Gm-D5w 50 ml Bag** 1 G/50 ML IVPB IV ONE (19:49)
[2017-11-27 20:00] LABS: ALBUMIN 4.5 g/dL (3.5-5.0); ALKALINE PHOSPHATASE 104 U/L (38-126); AMYLASE 62 U/L (30-110); ANION GAP 12.2 MEQ/L (5-15); BLOOD UREA NITROGEN 9 mg/dL (7-17); CHLORIDE 107 mmol/L (98-107); Calcium 9.7 mg/dL (8.4-10.2); Carbon Dioxide 26 mmol/L (22-30); Creatinine 1 0.62 mg/dL (0.52-1.04); Glucose 109 mg/dL (74-106); LIPASE 46 U/L (23-300); Potassium 3.9 mmol/L (3.5-5.1); SGOT/AST 25 U/L (14-36); SGPT/ALT 37 U/L (0-35); SODIUM 141 mmol/L (137-145); Total Protein 7.1 g/dL (6.3-8.2)
[2017-11-27 20:05] LABS: BASOPHIL % 0.1 % (0.0-0.4); Basophil (Absolute #) 0.02 (0-0.4); Eosinophil % 0.8 % (0.00-5.0); Eosinophil (Absolute #) 0.11 (0-0.5); Granulocyte Absolute (ANC) 11.39 (1.4-6.9); Granulocytes % 85.4 % (36.0-66.0); Hematocrit 45.7 % (35-47); Hemoglobin 15.9 gm/dl (12.0-16.0); Lymphocyte (Absolute #) 1.29 (1.0-4.6); Lymphocytes % 9.7 % (24.0-44.0); Mean Cell Volume 92.3 fl (78-100); Mean Corpuscular Hemoglobin 32.1 pg (26-32); Mean Corpuscular Hgb Concent. 34.8 g/dl (32-36); Mean Platelet Volume 10.7 fl (6-9.5); Monocyte (Absolute #) 0.54 (0.0-1.3); Platelet Count 237 K/mm3 (150-450); Red Blood Count 4.95 M/mm3 (4.1-5.4); White Blood Count 13.4 K/mm3 (4.0-10.5)
[2017-11-27] MEDS ORDERED: NORCO 5/325 MG PO ONE (21:21)
[2017-11-27] MEDS ORDERED: NORCO 5/325 MG ONE (21:25)
[2017-11-27 21:36] VITALS: BP 112/74; PULSE 46; O2SAT 97
== END 2017-11-27 21:36 | disposition home or self-care (01) ==
LOC: ED 17:50
DX: R10.30 Lower abdominal pain, unspecified (principal); N39.0 Urinary tract infection, site not specified
CPT/HCPCS: 36000; 36415; 80053; 81000; 82150; 83690; 84703; 85025; 87077; 87086; 87186; 87491; 87591; 96360; 96365; 96374; 96375; 99284; J0696; J1885; A9270-GY

== ENCOUNTER 2021-08-04 18:26 | Observation (INO) | payer OTHER ==
[2021-08-04] MEDS ORDERED: Sodium Chloride 0.9% 1000 ML 1,000 ML IV STA (18:37)
[2021-08-04] MEDS ORDERED: xanAX 0.5 MG PO ONE (18:41)
[2021-08-04] MEDS ORDERED: VANCOMYCIN 1 GRAM/200 ML BAG 1 GM/200 ML PIGGYBACK IV ONE ×2 (18:46→19:05)
[2021-08-04] MEDS ORDERED: PIPERACILLIN/TAZOBACTAM 3.375 GM in Sodium Chloride 100ML MINI-BAG PLUS 100 ML IV ONE (18:46)
[2021-08-04] MEDS ORDERED: PIPERACILLIN/TAZOBACTAM IV ONE ×3 (19:04→23:37)
[2021-08-04] MEDS ORDERED: xanAX 0.5 MG ONE (19:04)
[2021-08-04] MEDS ORDERED: Sodium Chloride 0.9% 1000 ML 1,000 ML ONE (19:04)
[2021-08-04] MEDS ORDERED: Sodium Chloride 100ML MINI-BAG PLUS 100 ML IV ONE ×2 (19:07→23:38)
--- NOTE | 2021-08-04 19:13 | ERPHSYRPT ---
- History of Present Illness Time Seen by Provider: 08/04/21 18:35 Source: patient Exam Limitations: no limitations Patient Subjective Stated Complaint: PT states "I noticed my hand was getting red and swollen. The swelling is going up my arm now." Triage Nursing Assessment: Pt presented alert and oriented X 3, skin pwd. PT ambulates with an upright steady gait, able to speak in clear full sentences. Pt in no apparent respiratory dsitress. Physician History: Patient is a 31-year-old female presents to our ED for evaluation and treatment of left hand cellulitis. Symptoms started approximately 3 days ago after she s hot up methamphetamine into a left hand vein. Over the course of the past 2 days her cellulitis has spread and is now proximal to the left wrist. No fever. Patient complains of localized pain that is worse with movement and palpation. Patient denies trauma. Symptoms are mild to moderate in intensity. Pain improved at rest. Patient voices no other complaints or concerns at this time. Timing/Duration: day(s) (3 days ago) Severity: moderate Modifying Factors: Improves With: movement Associated Symptoms: denies symptoms Allergies/Adverse Reactions: codeine [Codeine] Adverse Reaction (Mild, Verified 03/16/18 13:13) Vomiting Home Medications: No Reportable Medications [No Reported Medications] 08/04/21 [History] Hx Tetanus, Diphtheria Vaccination/Date Given: No Hx Influenza Vaccination/Date Given: No Hx Pneumococcal Vaccination/Date Given: No Immunizations Up to Date: Yes Travel Risk - International Travel Have you traveled outside of the country in past 3 weeks: No - Coronavirus Screening Are you exhibiting any of the following symptoms?: No Close contact with a COVID-19 positive Pt in past 14-21 Days: No - Vaccine Status Have you recieved a Covid-19 vaccination: No - Review of Systems Constitutional: No Symptoms, No Fever, No Chills Eyes: No Symptoms Ears, Nose, & Throat: No Symptoms Respiratory: No Symptoms, No Cough, No Dyspnea Cardiac: No Symptoms, No Chest Pain, No Edema, No Syncope Abdominal/Gastrointestinal: No Symptoms, No Abdominal Pain, No Nausea, No Vomiting, No Diarrhea Genitourinary Symptoms: No Symptoms, No Dysuria Musculoskeletal: No Symptoms, No Back Pain, No Neck Pain Skin: No Symptoms, No Rash Neurological: No Symptoms, No Dizziness, No Focal Weakness, No Sensory Changes Psychological: No Symptoms Endocrine: No Symptoms Hematologic/Lymphatic: No Symptoms Immunological/Allergic: No Symptoms All Other Systems: Reviewed and Negative - Past Medical History Pertinent Past Medical History: Yes Neurological History: No Pertinent History ENT History: No Pertinent History Cardiac History: No Pertinent History Respiratory History: No Pertinent History Endocrine Medical History: No Pertinent History Musculoskeletal History: No Pertinent History GI Medical History: No Pertinent History History: No Pertinent History Psycho-Social History: No Pertinent History, Depression Female Reproductive Disorders: No Pertinent History, Endometriosis Other Medical History: OVERACTIVE LYMPH NODES WITH REMOVAL - Past Surgical History Past Surgical History: Yes Neuro Surgical History: No Pertinent History Cardiac: No Pertinent History Respiratory: No Pertinent History Gastrointestinal: No Pertinent History Genitourinary: No Pertinent History Musculoskeletal: No Pertinent History Female Surgical History: Section, Other, Dilation & Curettage Other Surgical History: D&C - Social History Smoking Status: Current every day smoker How long have you smoked: 5 Exposure to second hand smoke: No Drug Use: methamphetamines Patient Lives Alone: No - Female History Hx Last Menstrual Period: Hx Now: No - Nursing Vital Signs Nursing Vital Signs: Initial Vital Signs Temperature 97.8 F 08/04/21 18:31 Pulse Rate 98 H 08/04/21 18:31 Respiratory Rate 22 08/04/21 18:31 Blood Pressure 143/89 08/04/21 18:31 O2 Sat by Pulse Oximetry 98 08/04/21 18:31 Pain Scale Pain Intensity 7 - Physical Exam General Appearance: no apparent distress, alert Eye Exam: PERRL/EOMI, eyes nml inspection Ears, Nose, Throat Exam: normal ENT inspection, TMs normal, pharynx normal, moist mucous membranes Neck Exam: normal inspection, non-tender, supple, full range of motion Respiratory Exam: normal breath sounds, lungs clear, airway intact, No respiratory distress Cardiovascular Exam: regular rate/rhythm, normal heart sounds, normal peripheral pulses Gastrointestinal/Abdomen Exam: soft, normal bowel sounds, No tenderness, No mass Back Exam: normal inspection, normal range of motion, No CVA tenderness, No vertebral tenderness Extremity Exam: normal inspection, normal range of motion, pelvis stable Neurologic Exam: alert, oriented x 3, cooperative, normal mood/affect, nml cerebellar function, nml station & gait, sensation nml, No motor deficits Skin Exam: normal color, warm, dry, No rash Lymphatic Exam: No adenopathy SpO2 Interpretation: normal SpO2: 98 O2 Delivery: Room Air - Course Nursing assessment & vital signs reviewed: Yes - Radiology Exams Hand X-ray Interpretation: Interpreted by me (No fracture dislocation. No foreign body. Hand swelling) Ordered Tests: Active Orders 24 hr Category Date Time Status Dining Room Captain STAT Care 08/04/21 18:37 Active IV Insertion STAT Care 08/04/21 18:37 Active Pulse Oximetry (ED) STAT Care 08/04/21 18:37 Active HAND (MINIMUM 3 VIEWS) Stat Exams 08/04/21 18:39 Taken BLOOD CULTURE Stat Lab 08/04/21 18:50 Received CBC W DIFF Stat Lab 08/04/21 18:50 Completed CMP Stat Lab 08/04/21 18:50 Completed HCG,QUALITATIVE URINE Stat Lab 08/04/21 19:52 Completed Lactic Acid Stat Lab 08/04/21 19:00 Completed Transfer Order Routine Transfer 08/04/21 Ordered Medication Summary Discontinued Medications Generic Name Dose Route Start Last Admin Trade Name [place]q PRN Reason Stop Dose Admin Alprazolam 0.5 mg 08/04/21 18:41 08/04/21 19:13 Alprazolam 0.5 Mg Tablet PO 08/04/21 18:42 0.5 mg STAT ONE Administration Alprazolam Confirm 08/04/21 19:04 Alprazolam 0.5 Mg Tablet Administered 08/04/21 19:05 Dose 0.5 mg .ROUTE .STK-MED ONE Sodium Chloride 1,000 mls @ 999 mls/hr 08/04/21 18:37 08/04/21 20:27 Sodium Chloride 0.9% 1000 Ml IV 08/04/21 19:37 Infused .Q1H1M STA Infusion Vancomycin HCl 1 gm in 200 mls @ 125 mls/hr 08/04/21 18:46 08/04/21 19:58 Vancomycin 1 Gram/200 Ml Bag IV 08/04/21 20:21 125 mls/hr STAT ONE 125 mls/hr Administration Piperacillin Sod/Tazobactam 100 mls @ 200 mls/hr 08/04/21 18:46 08/04/21 19: 09 Sod 3.375 gm/ Sodium Chloride IV 08/04/21 19:15 200 mls/hr STAT ONE Administration Sodium Chloride Confirm 08/04/21 19:04 Sodium Chloride 0.9% 1000 Ml Administered 08/04/21 19:05 Dose 1,000 mls @ ud .ROUTE .STK-MED ONE Vancomycin HCl Confirm 08/04/21 19:05 Vancomycin 1 Gram/200 Ml Bag Administered 08/04/21 19:06 Dose 1 gm in 200 mls @ ud IV .STK-MED ONE Sodium Chloride Confirm 08/04/21 19:07 Sodium Chloride 100ml Mini-Bag Plus Administered 08/04/21 19:08 Dose 100 mls @ ud IV .STK-MED ONE Piperacillin Sod/Tazobactam Sod Confirm 08/04/21 19:04 Piperacillin/Tazobactam Sodium 3.375 Gm Vial Administered 08/04/21 19:05 Dose 3.375 gm IV .STK-MED ONE Piperacillin Sod/Tazobactam Sod Confirm 08/04/21 19:06 Piperacillin/Tazobactam Sodium 3.375 Gm Vial Administered 08/04/21 19:07 Dose 3.375 gm IV .STK-MED ONE Lab/Rad Data: Laboratory Result Diagrams 08/04/21 18:50 08/04/21 18:50 Laboratory Results 08/04/21 08/04/21 08/04/21 Range/Units 19:52 19:52 19:26 WBC (4.0-10.5) K/mm3 RBC (4.1-5.4) M/mm3 Hgb (12.0-16.0) gm/dl Hct (35-47) % MCV (78-100) fl MCH (26-32) pg MCHC (32-36) g/dl RDW (11.5-14.0) % Plt Count (150-450) K/mm3 MPV (7.5-11.0) fl Gran % (36.0-66.0) % Eos # (Auto) (0-0.5) Absolute Lymphs (auto) (1.0-4.6) Absolute Monos (auto) (0.0-1.3) Lymphocytes % (24.0-44.0) % Monocytes % (0.0-12.0) % Eosinophils % (0.00-5.0) % Basophils % (0.0-0.4) % Absolute Granulocytes (1.4-6.9) Basophils # (0-0.4) Sodium (137-145) mmol/L Potassium (3.5-5.1) mmol/L Chloride (98-107) mmol/L Carbon Dioxide (22-30) mmol/L Anion Gap (5-15) MEQ/L BUN (7-17) mg/dL Creatinine (0.52-1.04) mg/dL Estimated GFR ML/MIN Glucose (74-106) mg/dL Lactic Acid (0.4-2.0) Calcium (8.4-10.2) mg/dL Total Bilirubin (0.2-1.3) mg/dL AST (14-36) U/L ALT (0-35) U/L Alkaline Phosphatase (38-126) U/L Serum Total Protein (6.3-8.2) g/dL Albumin (3.5-5.0) g/dL Urinalys Dipstick Clnc MAIN LAB Urine Color YELLOW (YELLOW) Urine Appearance CLEAR (CLEAR) Urine pH 6.0 (5-6) Ur Specific Gill 1.025 (1.005-1.025) POC Urine Protein Conf NEGATIVE (Negative) Urine Ketones MODERATE-40 (NEGATIVE) Urine Nitrite NEGATIVE (NEGATIVE) Urine Bilirubin SMALL (NEGATIVE) Urine Urobilinogen 1 (0-1) mg/dL Urine Leukocytes NEGATIVE (NEGATIVE) Urine WBC (Auto) 0-2 (0-5) /HPF Urine RBC (Auto) NONE (0-2) /HPF U Epithel Cells (Auto) RARE (FEW) /HPF Urine Bacteria (Auto) NONE (NEGATIVE) /HPF Urine RBC TRACE-INTACT (0-5) Mike/ul Urine Mucus (Auto) SLIGHT (NEGATIVE) /HPF Ur Culture Indicated? NO Urine Glucose NEGATIVE (NEGATIVE) mg/dL Urine HCG, Qual NEGATIVE (Negative) Influenza Type A Ag NEGATIVE (NEGATIVE) Influenza Type B Ag NEGATIVE (NEGATIVE) RSV (PCR) NEGATIVE (Negative) SARS-CoV-2 (PCR) NEGATIVE (NEGATIVE) 08/04/21 08/04/21 08/04/21 Range/Units 19:00 18:50 18:50 WBC 10.6 H (4.0-10.5) K/mm3 RBC 4.22 (4.1-5.4) M/mm3 Hgb 13.7 (12.0-16.0) gm/dl Hct 39.9 (35-47) % MCV 94.5 (78-100) fl MCH 32.5 H (26-32) pg MCHC 34.3 (32-36) g/dl RDW 12.7 (11.5-14.0) % Plt Count 255 (150-450) K/mm3 MPV 9.8 (7.5-11.0) fl Gran % 74.0 H (36.0-66.0) % Eos # (Auto) 0.11 (0-0.5) Absolute Lymphs (auto) 1.92 (1.0-4.6) Absolute Monos (auto) 0.70 (0.0-1.3) Lymphocytes % 18.2 L (24.0-44.0) % Monocytes % 6.6 (0.0-12.0) % Eosinophils % 1.0 (0.00-5.0) % Basophils % 0.2 (0.0-0.4) % Absolute Granulocytes 7.82 H (1.4-6.9) Basophils # 0.02 (0-0.4) Sodium 137 (137-145) mmol/L Potassium 3.5 (3.5-5.1) mmol/L Chloride 104 (98-107) mmol/L Carbon Dioxide 21 L (22-30) mmol/L Anion Gap 15.1 H (5-15) MEQ/L BUN 11 (7-17) mg/dL Creatinine 0.47 L (0.52-1.04) mg/dL Estimated GFR > 60.0 ML/MIN Glucose 92 (74-106) mg/dL Lactic Acid 1.2 (0.4-2.0) Calcium 9.5 (8.4-10.2) mg/dL Total Bilirubin 2.60 H (0.2-1.3) mg/dL AST 27 (14-36) U/L ALT 31 (0-35) U/L Alkaline Phosphatase 65 (38-126) U/L Serum Total Protein 7.4 (6.3-8.2) g/dL Albumin 4.5 (3.5-5.0) g/dL Urinalys Dipstick Clnc Urine Color (YELLOW) Urine Appearance (CLEAR) Urine pH (5-6) Ur Specific Gill (1.005-1.025) POC Urine Protein Conf (Negative) Urine Ketones (NEGATIVE) Urine Nitrite (NEGATIVE) Urine Bilirubin (NEGATIVE) Urine Urobilinogen (0-1) mg/dL Urine Leukocytes (NEGATIVE) Urine WBC (Auto) (0-5) /HPF Urine RBC (Auto) (0-2) /HPF U Epithel Cells (Auto) (FEW) /HPF Urine Bacteria (Auto) (NEGATIVE) /HPF Urine RBC (0-5) Mike/ul Urine Mucus (Auto) (NEGATIVE) /HPF Ur Culture Indicated? Urine Glucose (NEGATIVE) mg/dL Urine HCG, Qual (Negative) Influenza Type A Ag (NEGATIVE) Influenza Type B Ag (NEGATIVE) RSV (PCR) (Negative) SARS-CoV-2 (PCR) (NEGATIVE) - Progress Progress: improved Progress Note: Patient reassessed. Pain improved. Patient received vancomycin and Zosyn. X-ray negative for foreign body or subcutaneous gas. Blood cultures obtained. Plan of care discussed with Dr. Lee who accepts admission to observation. Covid test negative. Plan of care discussed with patient. She agrees to admission [facility] for further evaluation and treatment. Portions of this note were created with voice recognition technology. There may be grammatical, spelling, punctuation or sound alike errors 08/04/21 21:[address] Francisco Javier Will see patient in: hospital (observation) Counseled pt/family regarding: lab results, diagnosis, rad results - Departure Departure Disposition: Observation Clinical Impression: Leukocytosis, Total bilirubin, elevated, Cellulitis of hand, IVDU (intravenous drug user) Condition: Stable Critical Care Time: No Referrals: DOCTOR,NO FAMILY [Primary Care Provider] - Follow up/PCP as directed
[2021-08-04 19:23] LABS: Absolute Neutrophil Ct (ANC) 7.82 (1.4-6.9); Basophil (Absolute #) 0.02 (0-0.4); Eosinophil (Absolute #) 0.11 (0-0.5); Hematocrit 39.9 % (35-47); Hemoglobin 13.7 gm/dl (12.0-16.0); Lymphocyte (Absolute #) 1.92 (1.0-4.6); Lymphocytes % 18.2 % (24.0-44.0); Mean Cell Volume 94.5 fl (78-100); Mean Corpuscular Hemoglobin 32.5 pg (26-32); Mean Corpuscular Hgb Concent. 34.3 g/dl (32-36); Mean Platelet Volume 9.8 fl (7.5-11.0); Monocytes % 6.6 % (0.0-12.0); Platelet Count 255 K/mm3 (150-450); Red Blood Count 4.22 M/mm3 (4.1-5.4); Red Cell Distribution Width 12.7 % (11.5-14.0); White Blood Count 10.6 K/mm3 (4.0-10.5)
[2021-08-04 19:32] LABS: ALBUMIN 4.5 g/dL (3.5-5.0); ALKALINE PHOSPHATASE 65 U/L (38-126); ANION GAP 15.1 MEQ/L (5-15); BLOOD UREA NITROGEN 11 mg/dL (7-17); CHLORIDE 104 mmol/L (98-107); Calcium 9.5 mg/dL (8.4-10.2); Carbon Dioxide 21 mmol/L (22-30); Creatinine 1 0.47 mg/dL (0.52-1.04); EST GLOMERULAR FILTRATION RATE > 60.0 ML/MIN; Glucose 92 mg/dL (74-106); Potassium 3.5 mmol/L (3.5-5.1); SGOT/AST 27 U/L (14-36); SGPT/ALT 31 U/L (0-35); SODIUM 137 mmol/L (137-145); Total Protein 7.4 g/dL (6.3-8.2)
[2021-08-04 20:03] LABS: Appearance CLEAR (CLEAR); Glucose NEGATIVE (NEGATIVE)
[2021-08-04 20:04] LABS: Bilirubin SMALL (NEGATIVE); Ketones MODERATE-40 (NEGATIVE); Protein,Urine Dip NEGATIVE (Negative); RBC TRACE-INTACT Ery/ul (0-5); Specific Gravity 1.025 (1.005-1.025)
[2021-08-04 20:05] LABS: Dipstick done @ ? MAIN LAB; Nitrite NEGATIVE (NEGATIVE); Urobilinogen 1 mg/dL (0-1)
[2021-08-04 20:06] LABS: Epithelial Cells RARE /HPF (FEW); Mucus SLIGHT /HPF (NEGATIVE); WBC 0-2 /HPF (0-5)
[2021-08-04 20:08] LABS: INFLUENZA A NEGATIVE (NEGATIVE); INFLUENZA B NEGATIVE (NEGATIVE); RESPIRATORY SYNCTIAL VIRUS NEGATIVE (Negative); SARS-CoV-2 Xpert Express NEGATIVE (NEGATIVE)
[2021-08-04 20:40] LABS: Urine Cultured Indicated? NO
[2021-08-04] MEDS ORDERED: TYLENOL 325 MG PO PRN (21:46)
[2021-08-04] MEDS ORDERED: Sodium Chloride 0.9% 1000 ML 1,000 ML IV SCH (21:46)
[2021-08-04] MEDS ORDERED: VANCOMYCIN 1 GRAM/200 ML BAG 1 GM/200 ML PIGGYBACK IV SCH (21:46)
[2021-08-04] MEDS: PIPERACILLIN/TAZOBACTAM 3.375 GM in Sodium Chloride 100ML MINI-BAG PLUS 100 ML IV SCH (23:51)
[2021-08-04] MEDS: MORPHINE SULFATE 2 MG INJ IV PRN (23:54)
[2021-08-05 04:44] LABS: Absolute Neutrophil Ct (ANC) 4.25 (1.4-6.9); Basophil (Absolute #) 0.03 (0-0.4); Eosinophil % 3.1 % (0.00-5.0); Eosinophil (Absolute #) 0.23 (0-0.5); Hematocrit 34.8 % (35-47); Hemoglobin 11.6 gm/dl (12.0-16.0); Lymphocyte (Absolute #) 2.22 (1.0-4.6); Lymphocytes % 30.2 % (24.0-44.0); Mean Cell Volume 97.8 fl (78-100); Mean Corpuscular Hemoglobin 32.6 pg (26-32); Mean Corpuscular Hgb Concent. 33.3 g/dl (32-36); Mean Platelet Volume 9.5 fl (7.5-11.0); Monocyte (Absolute #) 0.61 (0.0-1.3); Monocytes % 8.3 % (0.0-12.0); Platelet Count 206 K/mm3 (150-450); Red Blood Count 3.56 M/mm3 (4.1-5.4); Red Cell Distribution Width 12.9 % (11.5-14.0); White Blood Count 7.3 K/mm3 (4.0-10.5)
[2021-08-05 05:10] LABS: ALBUMIN 3.2 g/dL (3.5-5.0); ALKALINE PHOSPHATASE 43 U/L (38-126); ANION GAP 9.9 MEQ/L (5-15); BLOOD UREA NITROGEN 10 mg/dL (7-17); CHLORIDE 110 mmol/L (98-107); Calcium 7.9 mg/dL (8.4-10.2); Carbon Dioxide 22 mmol/L (22-30); Creatinine 1 0.58 mg/dL (0.52-1.04); EST GLOMERULAR FILTRATION RATE > 60.0 ML/MIN; Glucose 104 mg/dL (74-106); Potassium 3.7 mmol/L (3.5-5.1); SGOT/AST 22 U/L (14-36); SGPT/ALT 24 U/L (0-35); SODIUM 138 mmol/L (137-145); Total Protein 5.6 g/dL (6.3-8.2)
[2021-08-05] MEDS ORDERED: Sodium Chloride 100ML MINI-BAG PLUS 100 ML IV ONE (05:39)
[2021-08-05] MEDS ORDERED: PIPERACILLIN/TAZOBACTAM IV ONE (05:39)
[2021-08-05] MEDS: MORPHINE SULFATE 2 MG INJ IV PRN (05:50)
[2021-08-05] MEDS: PIPERACILLIN/TAZOBACTAM 3.375 GM in Sodium Chloride 100ML MINI-BAG PLUS 100 ML IV SCH ×4 (05:50→23:00)
[2021-08-05] MEDS: VANCOCIN 500 MG VIAL*** 500 MG in Sodium Chloride 100ML MINI-BAG PLUS 100 ML IV SCH ×3 (07:49→21:28)
[2021-08-05] MEDS: TORAdol 30 mg Injection IV SCH ×3 (08:25→20:41)
[2021-08-05] MEDS: Nicoderm CQ 21 MG TOP SCH ×2 (08:25→20:40)
--- NOTE | 2021-08-05 08:39 | XRAY ---
Indication: Pain, erythema, and swelling 3 days. Foreign body. Subcutaneous gas. Necrotizing fasciitis. Comparison: None 3 view left hand demonstrates diffuse soft tissue swelling. No other bony, articular, or soft tissue abnormalities.
--- NOTE | 2021-08-05 08:42 | HP ---
CHIEF COMPLAINT: Left hand pain. HISTORY OF PRESENT ILLNESS: The patient is a 31-year-old white female who has been injecting meth into her left hand. She is also concerned presently about the potential of bath salts in it too which she is unsure about. The patient had been about three days with the pain in the left hand increasing to the point where she sought emergency care. The patient was brought into the hospital and given IV antibiotic of Zosyn and Vancomycin. PAST MEDICAL HISTORY: Otherwise significant for previous meth use. She had been eight months clear. She reports she had a job recently and some trouble with her job and trying to get the kids off to school and she got uptight and started using again. She has previous history of anxiety and depression. PAST SURGICAL HISTORY: section. D&C. HOME MEDICATIONS: The patient has been on no medications over the last three months. ALLERGIES: CODEINE. PHYSICAL EXAMINATION: The patient's vital signs on admission showed temperature 97.8F, pulse 98, respiratory rate 22 and blood pressure 143/89. O2 saturation 98% on room air. HEENT: Normocephalic, atraumatic. Pupils equal round reactive to light. Extraocular movements intact. Oropharynx is pink and moist. Dental problems associated with meth use are noted. NECK: Supple without lymphadenopathy, thyromegaly or JVD. CHEST: Clear to auscultation. HEART: Regular rate and rhythm without murmurs, rubs or gallops. ABDOMEN: Soft. No palpable masses. EXTREMITIES: Revealed the left hand with significant swelling and erythema over the dorsal surface of the hand extending up the forearm to a short margin. In the emergency room, they placed a marker and it appears to be extending beyond that estevan at this point in time this morning. LAB DATA AND TESTS: White count 7.3, hemoglobin 11.6, PLT count 206,000. Metabolic panel showed slightly low calcium 7.9. Total protein 5.6 and total bilirubin was elevated initially 2.6 but down to 2.0 now. There have been no issues of abdominal pain. Her EKG tracings remained normal sinus rhythm. ASSESSMENT: We instructed the patient to keep her hand elevated above her heart and gave her some pillows to help her to do this. We will increase her pain medicine to morphine 4 mg every 4 hours PRN and we will give her Toradol at 30 mg every six hours scheduled and recheck labs in the morning. If it continues to get worse we will transfer the patient for surgical evaluation by a hand surgeon.
[2021-08-05] MEDS: MORPHINE SULFATE 4 MG INJ IV PRN ×3 (10:33→22:55)
[2021-08-05] MEDS: Zofran 4 MG/2 ML VIAL IV PRN (14:14)
[2021-08-05] MEDS ORDERED: VANCOMYCIN 1 GRAM/200 ML BAG 1 GM/200 ML PIGGYBACK IV SCH (22:00)
[2021-08-06] MEDS: TORAdol 30 mg Injection IV SCH ×4 (03:27→21:24)
[2021-08-06 05:20] LABS: Hematocrit 33.7 % (35-47); Hemoglobin 11.1 gm/dl (12.0-16.0); Mean Cell Volume 99.7 fl (78-100); Mean Corpuscular Hemoglobin 32.8 pg (26-32); Mean Corpuscular Hgb Concent. 32.9 g/dl (32-36); Mean Platelet Volume 9.9 fl (7.5-11.0); Platelet Count 199 K/mm3 (150-450); Red Blood Count 3.38 M/mm3 (4.1-5.4); Red Cell Distribution Width 13.1 % (11.5-14.0); White Blood Count 4.1 K/mm3 (4.0-10.5)
[2021-08-06 05:32] LABS: ANION GAP 7.9 MEQ/L (5-15); BLOOD UREA NITROGEN 9 mg/dL (7-17); CHLORIDE 109 mmol/L (98-107); Calcium 8.2 mg/dL (8.4-10.2); Carbon Dioxide 25 mmol/L (22-30); EST GLOMERULAR FILTRATION RATE > 60.0 ML/MIN; Glucose 99 mg/dL (74-106); Potassium 3.9 mmol/L (3.5-5.1); SODIUM 138 mmol/L (137-145)
[2021-08-06] MEDS: PIPERACILLIN/TAZOBACTAM 3.375 GM in Sodium Chloride 100ML MINI-BAG PLUS 100 ML IV SCH ×4 (05:34→23:28)
[2021-08-06] MEDS: VANCOCIN 500 MG VIAL*** 500 MG in Sodium Chloride 100ML MINI-BAG PLUS 100 ML IV SCH ×3 (06:05→17:59)
[2021-08-06] MEDS: MORPHINE SULFATE 4 MG INJ IV PRN ×3 (06:05→17:59)
[2021-08-06] MEDS: Zofran 4 MG/2 ML VIAL IV PRN (08:44)
[2021-08-06] MEDS ORDERED: TROUGH DRUG LEVELS IJ ONE (13:30)
[2021-08-06] MEDS: Nicoderm CQ 21 MG TOP SCH (18:17)
[2021-08-07] MEDS: VANCOCIN 500 MG VIAL*** 500 MG in Sodium Chloride 100ML MINI-BAG PLUS 100 ML IV SCH ×5 (00:01→23:55)
[2021-08-07] MEDS: MORPHINE SULFATE 4 MG INJ IV PRN ×4 (00:03→16:31)
[2021-08-07] MEDS: TORAdol 30 mg Injection IV SCH ×4 (03:03→21:47)
[2021-08-07] MEDS: PIPERACILLIN/TAZOBACTAM 3.375 GM in Sodium Chloride 100ML MINI-BAG PLUS 100 ML IV SCH ×4 (05:15→23:32)
[2021-08-07] MEDS: Nicoderm CQ 21 MG TOP SCH (09:29)
[2021-08-07 11:53] LABS: HIV Screen 4th Generation wRfx Non Reactive (Non Reactive); RPR Non Reactive (Non Reactive)
--- NOTE | 2021-08-07 14:05 | PCM.NOTE ---
Date and Time: 08/07/21 6120 Subjective Assessment: Patient has cellulitis left hand from a needle stick(self) that requires IV antibiotics . Redness has decreased in the fingers but still very swollen and red metacarpals to wrist,swollen and unable to make a fist. Patient has improved po intake today. IV pain med reduced . She was able to take a shower today but now back in bed worn out and c/o hand is throbbing. Has Hepatitis C partially treated by Dr Joshi? in [place]. Objective Exam General Appearance: mild distress (hand throbbing just was up taking a shower.) Neurologic Exam: alert, oriented x 3, cooperative, normal mood/affect Skin Exam: warm, diaphoresis (mild), pale Wound Assessment: Skin/Wound Assessment Wound/Incision Assessment Start: 08/04/21 21:52 Text: Status: Active Freq: Q6H Protocol: Document 08/07/21 08:00 VENTURA (Rec: 08/07/21 08:14 VENTURA [id number]) Wound/Incision Assessment Left Hand Wound Assessment Shift Assessment Wound Type cellulitis Dressing Status Dry & Intact Drainage Amount None Drainage Odor None/Absent General Appearance Clean/Dry,Reddened Surrounding Tissue Natalia,Taut,Edematous Wound Photo Photo Taken No Ears, Nose, Throat Exam: normal ENT inspection Neck Exam: normal inspection Respiratory Exam: normal breath sounds Cardiovascular Exam: tachycardia (90 reg) Gastrointestinal/Abdomen Exam: soft (nontender) Extremity Exam: other (LUE - improved per redness line marked on adm. Redness and swelling from MCP joint linto wrist ,unable to make a fist) OBJECTIVE DATA Vital Signs: Vital Signs - 24 hr Temp Pulse Resp BP Pulse Ox 08/07/21 12:00 97.7 F 57 L 18 112/53 97 08/07/21 08:00 97.7 F 74 17 114/69 97 08/07/21 04:00 98.2 F 67 17 114/69 98 08/07/21 00:19 98.2 F 71 18 111/58 97 08/06/21 19:39 98.0 F 73 16 113/63 98 08/06/21 16:00 97.5 F 77 16 120/63 96 Pain Assessment - Last Documented Pain Intensity 0 Pain Scale Used 0-10 Pain Scale Intake and Output: Intake & Output 0308/06/21 08/07/21 08/08/21 11:59 11:59 11:59 11:59 Intake Total 2165 2360 2760 480 Output Total 300 1200 Balance 1865 1160 2760 480 Weight 57.5 kg Lab Results: Lab Results-Last 24 Hours 08/06/21 08/06/21 Range/Units 13:30 13:30 Vancomycin Trough 5.55 L (10-20) ug/mL RPR Non Reactive (Non Reactive) Hep Bs Antigen Pending Hep B Core IgM Ab Pending Hepatitis C Antibody Pending HIV 1&2 Ab/P24 Ag 4thGn Non Reactive (Non Reactive) Multi-Disciplinary Progress Notes: Multi-Disciplinary Progress Notes 08/07/21 09:45 Case Management Note by Arielle Avendano PATIENT INDEPENDENT AT HOME, ANTICIPATES NO D/C NEEDS. WILL FOLLOW FOR ANY D/C NEEDS THAT ARISE. Initialized on 08/07/21 09:45 - END OF NOTE 08/07/21 07:02 Pharmacy Note by Blaine Poe Vancomycin trough low at 5.5. Will increase to q6h dosing to raise level. Initialized on 08/07/21 07:02 - END OF NOTE Assessment/Plan (1) Cellulitis of hand Current Visit: Yes Status: Acute Assessment & Plan: improvement but still very swollen and painful will need additional IV antibiotic. Morphine dose reduced Code(s): L03.119 - CELLULITIS OF UNSPECIFIED PART OF LIMB (2) Hepatitis C Current Visit: Yes Status: Chronic Assessment & Plan: has had partial treatment with Dr Joshi ? Tanya WeeksIN
[2021-08-08] MEDS: MORPHINE SULFATE 4 MG INJ IV PRN ×2 (01:54→08:03)
[2021-08-08] MEDS: TORAdol 30 mg Injection IV SCH ×2 (04:45→08:00)
[2021-08-08 05:03] VITALS: O2SAT 96
[2021-08-08] MEDS: PIPERACILLIN/TAZOBACTAM 3.375 GM in Sodium Chloride 100ML MINI-BAG PLUS 100 ML IV SCH (05:07)
[2021-08-08] MEDS ORDERED: TROUGH DRUG LEVELS IJ ONE (05:30)
[2021-08-08] MEDS: VANCOCIN 500 MG VIAL*** 500 MG in Sodium Chloride 100ML MINI-BAG PLUS 100 ML IV SCH (06:04)
[2021-08-08 06:09] LABS: HBsAg Screen Negative (Negative); Hep A Ab, IgM Negative (Negative); Hep B Core Ab, IgM Negative (Negative)
[2021-08-08 06:15] LABS: Absolute Neutrophil Ct (ANC) 2.06 (1.4-6.9); Basophil (Absolute #) 0.03 (0-0.4); Eosinophil % 6.8 % (0.00-5.0); Eosinophil (Absolute #) 0.33 (0-0.5); Hematocrit 37.5 % (35-47); Hemoglobin 12.3 gm/dl (12.0-16.0); Lymphocyte (Absolute #) 2.18 (1.0-4.6); Lymphocytes % 44.8 % (24.0-44.0); Mean Cell Volume 99.5 fl (78-100); Mean Corpuscular Hemoglobin 32.6 pg (26-32); Mean Corpuscular Hgb Concent. 32.8 g/dl (32-36); Mean Platelet Volume 9.9 fl (7.5-11.0); Monocyte (Absolute #) 0.27 (0.0-1.3); Monocytes % 5.5 % (0.0-12.0); Neutrophil % 42.3 % (36.0-66.0); Platelet Count 243 K/mm3 (150-450); Red Blood Count 3.77 M/mm3 (4.1-5.4); Red Cell Distribution Width 12.8 % (11.5-14.0); White Blood Count 4.9 K/mm3 (4.0-10.5)
[2021-08-08 07:45] VITALS: BP 120/68; PULSE 61
[2021-08-08] MEDS: Nicoderm CQ 21 MG TOP SCH (08:16)
--- NOTE | 2021-08-08 09:35 | PCM.DS ---
Discharge Summary Date of Admission: 08/04/21 21:36 Admitting Physician: ROSSI COOPER Primary Care Provider: NO FAMILY DOCTOR Allergies Allergies codeine [Codeine] Adverse Reaction (Mild, Verified 08/04/21 21:49) Vomiting Hospital Summary - Hospital Course Hospital Course: Chief Complaint Diagnosis hand cellulitis Allergies Allergy/AdvReac Type Severity Reaction Status Date / Time codeine [Codeine] AdvReac Mild Vomiting Verified 08/04/21 21:49 Vital Signs (Last 24 hours) Temp Pulse Resp BP Pulse Ox 08/08/21 07:41 97.7 F 61 19 120/68 96 08/08/21 04:59 98.0 F 70 16 116/92 96 08/08/21 04:00 98.1 F 74 18 121/69 97 08/07/21 23:48 98.1 F 74 18 121/69 97 08/07/21 19:59 98.1 F 78 16 104/55 97 08/07/21 16:00 97.5 F 74 18 109/68 97 08/07/21 12:00 97.7 F 57 L 18 112/53 97 Home Medications Medication Instructions Recorded Confirmed Last Taken Type No Reportable Medications [No 08/04/21 08/04/21 Unknown History Reported Medications] Current Medications Generic Name Dose Route Start Last Admin Trade Name Freq PRN Reason Stop Dose Admin Acetaminophen 650 mg 08/04/21 21:46 Acetaminophen 325 Mg Tablet PO 09/03/21 21:45 Q4H PRN PRN PAIN AND/OR FEVER Piperacillin Sod/Tazobactam 100 mls @ 200 mls/hr 08/05/21 00:00 08/08/21 05:07 Sod 3.375 gm/ Sodium Chloride IV 08/09/21 00:00 200 mls/hr Q6HT NAWAF Administration Vancomycin HCl 500 mg/ Sodium 100 mls @ 100 mls/hr 08/06/21 18:00 08/08/21 0 6:04 Chloride IV 09/05/21 17:59 100 mls/hr Q6HT NAWAF Administration Ketorolac Tromethamine 30 mg 08/05/21 08:30 08/08/21 08:00 Ketorolac Tromethamine 30 Mg/Ml Inj IV 08/10/21 08:29 30 mg Q6H NAWAF Administration Morphine Sulfate 3 mg 08/07/21 09:07 08/08/21 08:03 Morphine Sulfate 4 Mg/Ml Injection IV 08/10/21 08:01 2 mg Q4H PRN PRN Administration PAIN Nicotine 21 mg 08/05/21 10:00 08/08/21 08:16 Nicotine 21 Mg/Patch Patch TOP 09/04/21 09:59 Not Given Q24H10 [facility] Ondansetron HCl 4 mg 08/05/21 14:09 08/06/21 08:44 Ondansetron Hcl 4 Mg/2 Ml Vial IV 09/04/21 14:08 4 mg Q4H PRN PRN Administration NAUSEA/VOMITING Discontinued Medications Generic Name Dose Route Start Last Admin Trade Name Freq PRN Reason Stop Dose Admin Alprazolam 0.5 mg 08/04/21 18:41 08/04/21 19:13 Alprazolam 0.5 Mg Tablet PO 08/04/21 18:42 0.5 mg STAT ONE Administration Alprazolam Confirm 08/04/21 19:04 Alprazolam 0.5 Mg Tablet Administered 08/04/21 19:05 Dose 0.5 mg .ROUTE .STK-MED ONE Device 1 08/06/21 13:30 08/06/21 14:28 Therapuetic Drug Level Monitor Each IJ 08/06/21 13:31 1 1XONLY ONE Administration Device 1 08/08/21 05:30 08/08/21 06:06 Therapuetic Drug Level Monitor Each IJ 08/08/21 05:31 1 1XONLY ONE Administration Sodium Chloride 1,000 mls @ 999 mls/hr 08/04/21 18:37 08/04/21 20:27 Sodium Chloride 0.9% 1000 Ml IV 08/04/21 19:37 Infused .Q1H1M STA Infusion Vancomycin HCl 1 gm in 200 mls @ 125 mls/hr 08/04/21 18:46 08/04/21 19:58 Vancomycin 1 Gram/200 Ml Bag IV 08/04/21 20:21 125 mls/hr STAT ONE 125 mls/hr Administration Piperacillin Sod/Tazobactam 100 mls @ 200 mls/hr 08/04/21 18:46 08/04/21 19:09 Sod 3.375 gm/ Sodium Chloride IV 08/04/21 19:15 200 mls/hr STAT ONE Administration Sodium Chloride Confirm 08/04/21 19:04 Sodium Chloride 0.9% 1000 Ml Administered 08/04/21 19:05 Dose 1,000 mls @ ud .ROUTE .STK-MED ONE Vancomycin HCl Confirm 08/04/21 19:05 Vancomycin 1 Gram/200 Ml Bag Administered 08/04/21 19:06 Dose 1 gm in 200 mls @ ud IV .STK-MED ONE Sodium Chloride Confirm 08/04/21 19:07 Sodium Chloride 100ml Mini-Bag Plus Administered 08/04/21 19:08 Dose 100 mls @ ud IV .STK-MED ONE Sodium Chloride 1,000 mls @ 100 mls/hr 08/04/21 21:46 08/04/21 22:20 Sodium Chloride 0.9% 1000 Ml IV 09/03/21 21:45 100 mls/hr .Q10H NAWAF Administration Vancomycin HCl 1 gm in 200 mls @ 125 mls/hr 08/04/21 21:46 08/04/21 22:53 Vancomycin 1 Gram/200 Ml Bag IV 09/03/21 21:45 Not Given Q24H NAWAF Vancomycin HCl 1 gm in 200 mls @ 125 mls/hr 08/05/21 22:00 Vancomycin 1 Gram/200 Ml Bag IV 09/04/21 21:59 Q24H NAWAF Sodium Chloride Confirm 08/04/21 23:38 Sodium Chloride 100ml Mini-Bag Plus Administered 08/04/21 23:39 Dose 100 mls @ ud IV .STK-MED ONE Sodium Chloride Confirm 08/05/21 05:39 Sodium Chloride 100ml Mini-Bag Plus Administered 08/05/21 05:40 Dose 100 mls @ ud IV .STK-MED ONE Vancomycin HCl 500 mg/ Sodium 100 mls @ 100 mls/hr 08/05/21 08:00 08/06/21 14:26 Chloride IV 09/04/21 07:59 100 mls/hr Q8HT NAWAF Administration Morphine Sulfate 2 mg 08/04/21 21:46 08/05/21 05:50 Morphine Sulfate 2 Mg/Ml Inj IV 08/09/21 21:45 2 mg Q4H PRN PRN Administration PAIN Morphine Sulfate 4 mg 08/05/21 08:02 08/07/21 05:09 Morphine Sulfate 4 Mg/Ml Injection IV 08/10/21 08:01 4 mg Q4H PRN PRN Administration PAIN Piperacillin Sod/Tazobactam Sod Confirm 08/04/21 19:04 Piperacillin/Tazobactam Sodium 3.375 Gm Vial Administered 08/04/21 19:05 Dose 3.375 gm IV .STK-MED ONE Piperacillin Sod/Tazobactam Sod Confirm 08/04/21 19:06 Piperacillin/Tazobactam Sodium 3.375 Gm Vial Administered 08/04/21 19:07 Dose 3.375 gm IV .STK-MED ONE Piperacillin Sod/Tazobactam Sod Confirm 08/04/21 23:37 Piperacillin/Tazobactam Sodium 3.375 Gm Vial Administered 08/04/21 23:38 Dose 3.375 gm IV .STK-MED ONE Piperacillin Sod/Tazobactam Sod Confirm 08/05/21 05:39 Piperacillin/Tazobactam Sodium 3.375 Gm Vial Administered 08/05/21 05:40 Dose 3.375 gm IV .STK-MED ONE Intake & Output (Last 24 hours) 08/05/21 08/06/21 08/07/21 08/08/21 11:59 11:59 11:59 11:59 Intake Total 2165 2360 2760 1080 Output Total 300 1200 Balance 1865 1160 2760 1080 Weight 57.5 kg Laboratory Results (Last 24 hours) 08/08/21 08/08/21 08/06/21 05:30 05:30 13:30 WBC 4.9 RBC 3.77 L Hgb 12.3 Hct 37.5 MCV 99.5 MCH 32.6 H MCHC 32.8 RDW 12.8 Plt Count 243 MPV 9.9 Gran % 42.3 Eos # (Auto) 0.33 Absolute Lymphs (auto) 2.18 Absolute Monos (auto) 0.27 Lymphocytes % 44.8 H Monocytes % 5.5 Eosinophils % 6.8 H Basophils % 0.6 Absolute Granulocytes 2.06 Basophils # 0.03 Vancomycin Trough 8.97 L RPR Non Reactive HIV 1&2 Ab/P24 Ag 4thGn Non Reactive Orders (Last 24 hours) Category Date Time Status Discharge Routine Discharge 08/08/21 Ordered Discharge/Telephone Order Routine Discharge 08/08/21 Active CBC W DIFF AM.LAB Lab 08/08/21 05:30 Completed Vancomycin, Trough Urgent Lab 08/08/21 05:30 Completed Morphine Sulfate 4 mg Inj Med 08/07/21 09:07 Active 3 mg IV Q4H PRN PRN Therapuetic Drug Level Monitor [Trough Drug Levels] Med 08/08/21 05:30 Discontinued 1 IJ 1XONLY ONE Patient Care Notes (Last 24 hours) 08/08/21 07:00 Nursing Note by Marya Davidson PATIENT WILL DISCAHRGE TODAY. CONSULT PHARMACY FOR D/C ANTIBIOTIC. Initialized on 08/08/21 07:00 - END OF NOTE 08/07/21 09:45 Case Management Note by Arielle Avendano PATIENT INDEPENDENT AT HOME, ANTICIPATES NO D/C NEEDS. WILL FOLLOW FOR ANY D/C NEEDS THAT ARISE. Initialized on 08/07/21 09:45 - END OF NOTE - Vitals & Intake/Output Vital Signs: Vital Signs Temperature 97.7 F 08/08/21 07:41 Pulse Rate 61 08/08/21 07:41 Respiratory Rate 19 08/08/21 07:41 Blood Pressure 120/68 08/08/21 07:41 O2 Sat by Pulse Oximetry 96 08/08/21 07:41 Intake & Output: Intake & Output 08/05/21 08/06/21 08/07/21 08/08/21 11:59 11:59 11:59 11:59 Intake Total 2165 2360 2760 1080 Output Total 300 1200 Balance 1865 1160 2760 1080 Weight 57.5 kg - Lab Result Diagrams: 08/08/21 05:30 08/06/21 04:40 Lab Results-Last 24 Hrs: Lab Results-Last 24 Hours 08/06/21 08/08/21 08/08/21 Range/Units 13:30 05:30 05:30 WBC 4.9 (4.0-10.5) K/mm3 RBC 3.77 L (4.1-5.4) M/mm3 Hgb 12.3 (12.0-16.0) gm/dl Hct 37.5 (35-47) % MCV 99.5 (78-100) fl MCH 32.6 H (26-32) pg MCHC 32.8 (32-36) g/dl RDW 12.8 (11.5-14.0) % Plt Count 243 (150-450) K/mm3 MPV 9.9 (7.5-11.0) fl Gran % 42.3 (36.0-66.0) % Eos # (Auto) 0.33 (0-0.5) Absolute Lymphs (auto) 2.18 (1.0-4.6) Absolute Monos (auto) 0.27 (0.0-1.3) Lymphocytes % 44.8 H (24.0-44.0) % Monocytes % 5.5 (0.0-12.0) % Eosinophils % 6.8 H (0.00-5.0) % Basophils % 0.6 (0.0-0.4) % Absolute Granulocytes 2.06 (1.4-6.9) Basophils # 0.03 (0-0.4) Vancomycin Trough 8.97 L (10-20) ug/mL RPR Non Reactive (Non Reactive) Hep Bs Antigen Pending Hep B Core IgM Ab Pending Hepatitis C Antibody Pending HIV 1&2 Ab/P24 Ag 4thGn Non Reactive (Non Reactive) Micro Results-Entire Visit: Microbiology 08/04/21 19:00 Blood Culture - Preliminary Blood NO GROWTH TO DATE 08/04/21 18:50 Blood Culture - Preliminary Blood NO GROWTH TO DATE - Procedures and Test Procedures and Tests throughout Hospitalization: Therapy Orders & Screens 08/05/21 08:00 Smoking Cessation Education ONCE Comment: Diagnosis: hand cellulitis Smoking Status: Current every day smoker How long have you smoked: 15 years Have you smoked in the past 12 months: Yes Approximately how many cigarettes per day: 20 Do you dip or chew tobacco: Yes: < one can/day Discharge Exam General Appearance: no apparent distress, alert Neurologic Exam: alert, oriented x 3, cooperative, normal mood/affect, nml cerebellar function, sensation nml, No motor deficits Eye Exam: PERRL, EOMI, eyes nml inspection Ears, Nose, Throat Exam: normal ENT inspection, pharynx normal, moist mucous membranes Neck Exam: normal inspection, non-tender, supple, full range of motion Respiratory Exam: normal breath sounds, lungs clear, No respiratory distress Cardiovascular Exam: regular rate/rhythm, normal heart sounds Gastrointestinal/Abdomen Exam: soft, No tenderness, No mass Pelvic Exam: deferred Rectal Exam: deferred Back Exam: normal inspection, normal range of motion, No CVA tenderness, No vertebral tenderness Extremity Exam: normal inspection, normal range of motion, inflammation (left hand) Skin Exam: normal color, warm, dry Wound Assessment: Skin/Wound Assessment Wound/Incision Assessment Start: 08/04/21 21:52 Text: Status: Active Freq: Q6H Protocol: Document 08/08/21 08:00 VENTURA (Rec: 08/08/21 08:20 VENTURA [id number]) Wound/Incision Assessment Left Hand Wound Assessment Shift Assessment Wound Type cellulitis Dressing Status Dry & Intact Drainage Amount None Drainage Odor None/Absent General Appearance Clean/Dry,Reddened Surrounding Tissue [place],Edematous Comment No dressing at this time, open to air. Wound Photo Photo Taken No Final Diagnosis/Problem List - Final Discharge Diagnosis/Problem (1) Cellulitis of hand Current Visit: Yes Status: Resolved Code(s): L03.119 - CELLULITIS OF UNSPECIFIED PART OF LIMB (2) IVDU (intravenous drug user) Current Visit: Yes Status: Chronic Code(s): F19.90 - OTHER PSYCHOACTIVE SUBSTANCE USE, UNSPECIFIED, UNCOMPLICATED - Discharge Disposition: Home, Self-Care Condition: Stable Prescriptions: New Cefuroxime Axetil 500 mg [Ceftin 500 mg] 500 mg PO QID #40 tablet Instructions: Cellulitis (Skin Infection), Adult (DC) Follow up with: JUAN CROSS [NON-STAFF PHY W/O PRIVILEGES] - 08/19/21 1:00 pm Forms: Discharge Instructions
[2021-08-08 12:09] LABS: Hep C Virus Ab >11.0 s/co ratio (0.0-0.9)
== END 2021-08-08 10:15 | disposition home or self-care (01) ==
LOC: ED 18:26 → MED SURG 21:36
PROVIDERS: ADMIT Family Medicine; ATTEND Family Medicine
DX: L03.114 Cellulitis of left upper limb (principal); F19.90 Other psychoactive substance use, unspecified, uncomplicated; B19.20 Unspecified viral hepatitis C without hepatic coma; F41.9 Anxiety disorder, unspecified; F32.A Depression, unspecified; Z20.828 Contact with and (suspected) exposure to other viral communicable diseases
CPT/HCPCS: 0241U; 36000; 36415; 73130; 80048; 80053; 80074; 80202; 81015; 83605; 84703; 85025; 85027; 86592; 87040; 87389; 93041; 93268; 94760; 96360; 96365; 99285; G0378; J1885; J2270; J2405; J3370; A9270-GY

== ENCOUNTER 2022-04-09 22:06 | Emergency (ER) | payer OTHER ==
--- NOTE | 2022-04-09 22:09 | ERPHSYRPT ---
- History of Present Illness Time Seen by Provider: 04/09/22 22:09 Source: patient, EMS Exam Limitations: no limitations Physician History: This is a 31-year-old white female patient who was brought in by ambulance service because of "withdrawing" from methamphetamine abuse. She states that she has not used any methamphetamines in approximately 4 days. She denies any other illicit drug use. She is a current daily smoker of cigarettes. She does have a history of hepatitis C. She also has a history of anxiety and depression. Patient specifically states she is not suicidal or homicidal Timing/Duration: today Severity of Symptoms-Max: moderate Severity of Symptoms-Current: mild (To moderate) Context related to: other (Illicit drug use) Suicidal thoughts: other (Denies suicidal thoughts) Associated Symptoms: agitated, anxiety, impaired concentration Previous symptoms: same symptoms as today, no recent treatment Allergies/Adverse Reactions: codeine [Codeine] Adverse Reaction (Mild, Verified 04/09/22 22:10) Vomiting Home Medications: No Reportable Medications [No Reported Medications] 04/09/22 [History] Hx Tetanus, Diphtheria Vaccination/Date Given: No Hx Influenza Vaccination/Date Given: No Hx Pneumococcal Vaccination/Date Given: No Travel Risk - International Travel Have you traveled outside of the country in past 3 weeks: No - Coronavirus Screening Are you exhibiting any of the following symptoms?: No Close contact with a COVID-19 positive Pt in past 14-21 Days: No - Vaccine Status Have you recieved a Covid-19 vaccination: No - Past Medical History Pertinent Past Medical History: Yes Neurological History: No Pertinent History ENT History: No Pertinent History Cardiac History: No Pertinent History Respiratory History: No Pertinent History Endocrine Medical History: No Pertinent History Musculoskeletal History: No Pertinent History GI Medical History: No Pertinent History History: No Pertinent History Psycho-Social History: Anxiety, Depression Female Reproductive Disorders: No Pertinent History, Endometriosis Other Medical History: . - Past Surgical History Past Surgical History: Yes Neuro Surgical History: No Pertinent History Cardiac: No Pertinent History Respiratory: No Pertinent History Gastrointestinal: No Pertinent History Genitourinary: No Pertinent History Musculoskeletal: No Pertinent History Female Surgical History: Section, Dilation & Curettage Other Surgical History: overactive lymph node removal - Social History Smoking Status: Current every day smoker How long have you smoked: 15 years Exposure to second hand smoke: No Drug Use: methamphetamines Patient Lives Alone: No - Review of Systems Constitutional: Night Sweats Eyes: No Symptoms Ears, Nose, & Throat: No Symptoms Respiratory: No Symptoms Cardiac: No Symptoms Abdominal/Gastrointestinal: No Symptoms Genitourinary Symptoms: No Symptoms Musculoskeletal: No Symptoms Skin: No Symptoms Neurological: No Symptoms Psychological: No Symptoms Endocrine: No Symptoms Hematologic/Lymphatic: No Symptoms Immunological/Allergic: No Symptoms All Other Systems: Reviewed and Negative - Nursing Vital Signs Nursing Vital Signs: Initial Vital Signs Temperature 97.8 F 04/09/22 22:13 Pulse Rate 130 H 04/09/22 22:13 Respiratory Rate 12 04/09/22 22:13 Blood Pressure 127/83 04/09/22 22:13 O2 Sat by Pulse Oximetry 99 04/09/22 22:13 Pain Scale Pain Intensity 0 - Physical Exam General Appearance: alert, anxiety Eyes, Ears, Nose, Throat Exam: normal ENT inspection, moist mucous membranes Neck Exam: normal inspection, non-tender, supple, full range of motion Respiratory Exam: normal breath sounds, lungs clear, airway intact, No chest tenderness, No respiratory distress Cardiovascular Exam: tachycardia Gastrointestinal/Abdominal Exam: soft, normal bowel sounds, No tenderness Current Suicidality: denies suicide plan Neurological Exam: alert, agitated, anxious Appearance: impaired insight Behavior/Eye Contact/Speech: alert & cooperative Thoughts/Hallucinations: no apparent hallucination Skin Exam: normal color, warm, dry SpO2 Interpretation: normal O2 Delivery: Room Air - Course Nursing assessment & vital signs reviewed: Yes EKG Interpreted by Me: RATE (94), Sinus Rhythm, NORMAL AXIS, NORMAL INTERVALS, NORMAL QRS, NORMAL ST-T, Other (No acute ischemic changes on today's twelve-lead EKG) Ordered Tests: Active Orders 24 hr Category Date Time Status EKG-ER Only STAT Care 04/09/22 22:14 Active IV Insertion STAT Care 04/09/22 22:14 Active ACETAMINOPHEN Stat Lab 04/09/22 22:40 Completed CBC W DIFF Stat Lab 04/09/22 22:40 Completed CMP Stat Lab 04/09/22 22:40 Completed ETHYL ALCOHOL Stat Lab 04/09/22 22:40 Completed SALICYLATE Stat Lab 04/09/22 22:40 Completed UA W/RFX CULTURE Stat Lab 04/09/22 22:38 Completed Urine Triage Profile Stat Lab 04/09/22 22:38 Completed Medication Summary Discontinued Medications Generic Name Dose Route Start Last Admin Trade Name Eduardo PRN Reason Stop Dose Admin Sodium Chloride 1,000 mls @ 999 mls/hr 04/09/22 22:14 04/09/22 22:36 Sodium Chloride 0.9% 1000 Ml IV 04/09/22 23:14 Not Given .Q1H1M STA Lorazepam 1 mg 04/09/22 22:14 04/09/22 22:36 Lorazepam 2 Mg/1 Ml 2 Mg Vial IV 04/09/22 22:15 Not Given STAT ONE Lorazepam 1 mg 04/09/22 22:37 04/09/22 22:58 Lorazepam 2 Mg/1 Ml 2 Mg Vial IM 04/09/22 22:38 Not Given STAT ONE Lorazepam Confirm 04/09/22 22:45 Lorazepam 2 Mg/1 Ml 2 Mg Vial Administered 04/09/22 22:46 Dose 2 mg .ROUTE .STK-MED ONE Ondansetron HCl 4 mg 04/09/22 22:14 04/09/22 22:37 Ondansetron Hcl 4 Mg/2 Ml Vial IV 04/09/22 22:15 Not Given STAT ONE Ondansetron HCl 4 mg 04/09/22 22:37 04/09/22 22:58 Zofran 4 Mg/Udtablet Orally Disintegrating PO 04/09/22 22:38 Not Given STAT ONE Ondansetron HCl Confirm 04/09/22 22:46 Zofran 4 Mg/Udtablet Orally Disintegrating Administered 04/09/22 22:47 Dose 4 mg .ROUTE .STK-MED ONE Lab/Rad Data: Laboratory Result Diagrams 04/09/22 22:40 04/09/22 22:40 Laboratory Results 04/09/22 04/09/22 04/09/22 Range/Units 23:25 22:40 22:40 WBC 8.9 (4.0-10.5) x10^3/uL RBC 4.86 (4.1-5.4) x10^6/uL Hgb 15.1 (12.0-16.0) g/dL Hct 46.6 (35-47) % MCV 95.9 (78-100) fL MCH 31.1 (26-32) pg MCHC 32.4 (32-36) g/dL RDW 12.7 (11.5-14.0) % Plt Count 336 (150-450) x10^3/uL MPV 9.1 (7.5-11.0) fL Gran % 56.5 (36.0-66.0) % Immature Gran % (Auto) 0.2 (0.00-0.4) % Nucleat RBC Rel Count 0.0 (0.00-0.1) % Eos # (Auto) 0.23 (0-0.5) x10^3/uL Immature Gran # (Auto) 0.02 (0.00-0.03) x10^3u/L Absolute Lymphs (auto) 3.00 (1.0-4.6) x10^3/uL Absolute Monos (auto) 0.57 (0.0-1.3) x10^3/uL Absolute Nucleated RBC 0.00 (0.00-0.01) x10^3u/L Lymphocytes % 33.6 (24.0-44.0) % Monocytes % 6.4 (0.0-12.0) % Eosinophils % 2.6 (0.00-5.0) % Basophils % 0.7 (0.0-0.4) % Absolute Granulocytes 5.05 (1.4-6.9) x10^3/uL Basophils # 0.06 (0-0.4) x10^3/uL Sodium 137 (137-145) mmol/L Potassium 4.4 (3.5-5.1) mmol/L Chloride 103 (98-107) mmol/L Carbon Dioxide 28 (22-30) mmol/L Anion Gap 11.0 (5-15) MEQ/L BUN 14 (7-17) mg/dL Creatinine 0.58 (0.52-1.04) mg/dL Estimated GFR > 60.0 ML/MIN Glucose 85 (74-106) mg/dL Calcium 9.2 (8.4-10.2) mg/dL Total Bilirubin 0.80 (0.2-1.3) mg/dL AST 28 (14-36) U/L ALT 33 (0-35) U/L Alkaline Phosphatase 78 (38-126) U/L Serum Total Protein 7.4 (6.3-8.2) g/dL Albumin 4.2 (3.5-5.0) g/dL Urinalys Dipstick Clnc Urine Color (YELLOW) Urine Appearance (CLEAR) Urine pH (5-6) Ur Specific Mobile (1.005-1.025) POC Urine Protein Conf (Negative) Urine Ketones (NEGATIVE) Urine Nitrite (NEGATIVE) Urine Bilirubin (NEGATIVE) Urine Urobilinogen (0-1) mg/dL Urine Leukocytes (NEGATIVE) Urine WBC (Auto) (0-5) /HPF Urine RBC (Auto) (0-2) /HPF U Hyaline Cast (Auto) (0-2) /LPF U Epithel Cells (Auto) (FEW) /HPF Urine Bacteria (Auto) (NEGATIVE) /HPF Urine RBC (0-5) Mike/ul Calcium Oxalate Crystal (NEGATIVE) /HPF Urine Mucus (Auto) (NEGATIVE) /HPF Ur Culture Indicated? Urine Glucose (NEGATIVE) mg/dL Salicylates < 1.0 L (2-20) mg/dL Urine Opiates Level (NEGATIVE) Ur Methadone (NEGATIVE) Acetaminophen < 10 L (10-30) ug/ml Urine Barbiturates (NEGATIVE) Ur Phencyclidine (PCP) (NEGATIVE) Urine Amphetamine (NEGATIVE) U Benzodiazepine Level (NEGATIVE) Urine Cocaine (NEGATIVE) Urine Marijuana (THC) (NEGATIVE) Ethyl Alcohol < 10 (0-10) mg/dL Influenza Type A Ag NEGATIVE (NEGATIVE) Influenza Type B Ag NEGATIVE (NEGATIVE) RSV (PCR) NEGATIVE (Negative) SARS-CoV-2 (PCR) NEGATIVE (NEGATIVE) 04/09/22 04/09/22 Range/Units 22:38 22:38 WBC (4.0-10.5) x10^3/uL RBC (4.1-5.4) x10^6/uL Hgb (12.0-16.0) g/dL Hct (35-47) % MCV (78-100) fL MCH (26-32) pg MCHC (32-36) g/dL RDW (11.5-14.0) % Plt Count (150-450) x10^3/uL MPV (7.5-11.0) fL Gran % (36.0-66.0) % Immature Gran % (Auto) (0.00-0.4) % Nucleat RBC Rel Count (0.00-0.1) % Eos # (Auto) (0-0.5) x10^3/uL Immature Gran # (Auto) (0.00-0.03) x10^3u/L Absolute Lymphs (auto) (1.0-4.6) x10^3/uL Absolute Monos (auto) (0.0-1.3) x10^3/uL Absolute Nucleated RBC (0.00-0.01) x10^3u/L Lymphocytes % (24.0-44.0) % Monocytes % (0.0-12.0) % Eosinophils % (0.00-5.0) % Basophils % (0.0-0.4) % Absolute Granulocytes (1.4-6.9) x10^3/uL Basophils # (0-0.4) x10^3/uL Sodium (137-145) mmol/L Potassium (3.5-5.1) mmol/L Chloride (98-107) mmol/L Carbon Dioxide (22-30) mmol/L Anion Gap (5-15) MEQ/L BUN (7-17) mg/dL Creatinine (0.52-1.04) mg/dL Estimated GFR ML/MIN Glucose (74-106) mg/dL Calcium (8.4-10.2) mg/dL Total Bilirubin (0.2-1.3) mg/dL AST (14-36) U/L ALT (0-35) U/L Alkaline Phosphatase (38-126) U/L Serum Total Protein (6.3-8.2) g/dL Albumin (3.5-5.0) g/dL Urinalys Dipstick Clnc MAIN LAB Urine Color YELLOW (YELLOW) Urine Appearance SLIGHTLY CLOUDY A (CLEAR) Urine pH 5.5 (5-6) Ur Specific [place] >=1.030 A (1.005-1.025) POC Urine Protein Conf 30 A (Negative) Urine Ketones SMALL-15 A (NEGATIVE) Urine Nitrite NEGATIVE (NEGATIVE) Urine Bilirubin SMALL A (NEGATIVE) Urine Urobilinogen 0.2 (0-1) mg/dL Urine Leukocytes NEGATIVE (NEGATIVE) Urine WBC (Auto) NONE (0-5) /HPF Urine RBC (Auto) NONE (0-2) /HPF U Hyaline Cast (Auto) 0-2 (0-2) /LPF U Epithel Cells (Auto) MANY (FEW) /HPF Urine Bacteria (Auto) NONE (NEGATIVE) /HPF Urine RBC NEGATIVE (0-5) Mike/ul Calcium Oxalate Crystal 6-10 A (NEGATIVE) /HPF Urine Mucus (Auto) SLIGHT A (NEGATIVE) /HPF Ur Culture Indicated? NO Urine Glucose NEGATIVE (NEGATIVE) mg/dL Salicylates (2-20) mg/dL Urine Opiates Level NEGATIVE (NEGATIVE) Ur Methadone NEGATIVE (NEGATIVE) Acetaminophen (10-30) ug/ml Urine Barbiturates NEGATIVE (NEGATIVE) Ur Phencyclidine (PCP) NEGATIVE (NEGATIVE) Urine Amphetamine POSITIVE (NEGATIVE) U Benzodiazepine Level NEGATIVE (NEGATIVE) Urine Cocaine NEGATIVE (NEGATIVE) Urine Marijuana (THC) POSITIVE (NEGATIVE) Ethyl Alcohol (0-10) mg/dL Influenza Type A Ag (NEGATIVE) Influenza Type B Ag (NEGATIVE) RSV (PCR) (Negative) SARS-CoV-2 (PCR) (NEGATIVE) - Progress Progress: improved Counseled pt/family regarding: lab results, diagnosis, need for follow-up - Departure Departure Disposition: Home Clinical Impression: Methamphetamine abuse, Marijuana use Condition: Stable Critical Care Time: No Critical Care Time(excluding separately billable procedures): Critical 30-74 mi ns Referrals: DOCTOR,NO FAMILY [Primary Care Provider] - Follow up/PCP as directed Additional Instructions: Drink plenty of clear liquids. Avoid alcohol. Avoid illicit drugs. Follow-up with your primary care provider for further evaluation management
[2022-04-09] MEDS ORDERED: Sodium Chloride 0.9% 1000 ML 1,000 ML IV STA (22:14)
[2022-04-09] MEDS ORDERED: Ativan 2 MG/1 ML VIAL IV ONE (22:14)
[2022-04-09] MEDS ORDERED: Zofran 4 MG/2 ML VIAL IV ONE (22:14)
[2022-04-09] MEDS ORDERED: Ativan 2 MG/1 ML VIAL ONE (22:45)
[2022-04-09] MEDS ORDERED: ZOFRAN ODT 4 MG ONE (22:46)
[2022-04-09] MEDS: ZOFRAN ODT 4 MG PO ONE ×2 (22:47→22:58)
[2022-04-09] MEDS: Ativan 2 MG/1 ML VIAL IM ONE ×2 (22:47→22:58)
[2022-04-09 22:48] LABS: Absolute Neutrophil Ct (ANC) 5.05 x10^3/uL (1.4-6.9); Basophil (Absolute #) 0.06 x10^3/uL (0-0.4); Eosinophil % 2.6 % (0.00-5.0); Eosinophil (Absolute #) 0.23 x10^3/uL (0-0.5); Hematocrit 46.6 % (35-47); Hemoglobin 15.1 g/dL (12.0-16.0); Lymphocytes % 33.6 % (24.0-44.0); Mean Cell Volume 95.9 fL (78-100); Mean Corpuscular Hemoglobin 31.1 pg (26-32); Mean Corpuscular Hgb Concent. 32.4 g/dL (32-36); Mean Platelet Volume 9.1 fL (7.5-11.0); Monocyte (Absolute #) 0.57 x10^3/uL (0.0-1.3); Monocytes % 6.4 % (0.0-12.0); Neutrophil % 56.5 % (36.0-66.0); Platelet Count 336 x10^3/uL (150-450); Red Blood Count 4.86 x10^6/uL (4.1-5.4); Red Cell Distribution Width 12.7 % (11.5-14.0); White Blood Count 8.9 x10^3/uL (4.0-10.5)
[2022-04-09 22:54] LABS: Appearance SLIGHTLY CLOUDY (CLEAR); Bilirubin SMALL (NEGATIVE); Glucose NEGATIVE (NEGATIVE); Ketones SMALL-15 (NEGATIVE); Specific Gravity >=1.030 (1.005-1.025)
[2022-04-09 22:55] LABS: Dipstick done @ ? MAIN LAB; Nitrite NEGATIVE (NEGATIVE); Ph 5.5 (5-6); Protein,Urine Dip 30 (Negative); RBC NEGATIVE Ery/ul (0-5); Urobilinogen 0.2 mg/dL (0-1)
[2022-04-09 23:04] LABS: ACETAMINOPHEN < 10 ug/ml (10-30); ALBUMIN 4.2 g/dL (3.5-5.0); ALKALINE PHOSPHATASE 78 U/L (38-126); BLOOD UREA NITROGEN 14 mg/dL (7-17); CHLORIDE 103 mmol/L (98-107); Calcium 9.2 mg/dL (8.4-10.2); Carbon Dioxide 28 mmol/L (22-30); Creatinine 1 0.58 mg/dL (0.52-1.04); EST GLOMERULAR FILTRATION RATE > 60.0 ML/MIN; ETHYL ALCOHOL < 10 mg/dL (0-10); Glucose 85 mg/dL (74-106); Potassium 4.4 mmol/L (3.5-5.1); SALICYLATE < 1.0 mg/dL (2-20); SGOT/AST 28 U/L (14-36); SGPT/ALT 33 U/L (0-35); SODIUM 137 mmol/L (137-145); Total Protein 7.4 g/dL (6.3-8.2)
[2022-04-09 23:06] LABS: Barbiturate,Urine NEGATIVE (NEGATIVE); Benzodiazepine,Urine NEGATIVE (NEGATIVE); Cocaine,Urine NEGATIVE (NEGATIVE); Methadone,Urine NEGATIVE (NEGATIVE); Opiate,Urine NEGATIVE (NEGATIVE); PCP,Urine NEGATIVE (NEGATIVE); THC,Urine POSITIVE (NEGATIVE)
[2022-04-09 23:14] LABS: Amphetamine,Urine POSITIVE (NEGATIVE)
[2022-04-09 23:18] LABS: Epithelial Cells MANY /HPF (FEW); Hyaline Casts 0-2 /LPF (0-2); Mucus SLIGHT /HPF (NEGATIVE); Urine Cultured Indicated? NO
[2022-04-10 00:05] LABS: INFLUENZA A NEGATIVE (NEGATIVE); INFLUENZA B NEGATIVE (NEGATIVE); RESPIRATORY SYNCTIAL VIRUS NEGATIVE (Negative); SARS-CoV-2 Xpert Express NEGATIVE (NEGATIVE)
[2022-04-10 00:53] VITALS: BP 99/59; PULSE 93; O2SAT 97
== END 2022-04-10 00:57 | disposition home or self-care (01) ==
LOC: ED 22:06
DX: F15.10 Other stimulant abuse, uncomplicated (principal); F12.90 Cannabis use, unspecified, uncomplicated; Z72.0 Tobacco use; Z28.310 Unvaccinated for COVID-19
CPT/HCPCS: 0241U; 36415; 80053; 80307; 81015; 85025; 93005; 99283; 99291; G0480; J2060; Q0162

== ENCOUNTER 2022-06-15 16:07 | Emergency (ER) | payer OTHER ==
--- NOTE | 2022-06-15 16:11 | ERPHSYRPT ---
- History of Present Illness Time Seen by Provider: 06/15/22 16:11 Source: patient Exam Limitations: no limitations Physician History: This is a 31-year-old white female who presents to the emergency department after sustaining dog bites to her left calf and right posterior hamstring. This occurred approximately 2 to 3 hours prior to arrival to the emergency department. The patient's tetanus status is not up-to-date. Patient initially put antibiotic ointment overlying the sites. Patient states she is allergic to codeine but is not a true allergy makes her nauseated. She has had Vicodin in the past with out too much of a problem. She describes this as more mild nausea. Timing/Duration: today Quality: painful Severity: mild Location: extremities (To moderate left posterior calf and right posterior hamstring) Possible Causes: other Allergies/Adverse Reactions: codeine [Codeine] Adverse Reaction (Mild, Verified 06/15/22 16:21) Vomiting Hx Tetanus, Diphtheria Vaccination/Date Given: No Hx Influenza Vaccination/Date Given: No Hx Pneumococcal Vaccination/Date Given: No Travel Risk - International Travel Have you traveled outside of the country in past 3 weeks: No - Coronavirus Screening Are you exhibiting any of the following symptoms?: No Close contact with a COVID-19 positive Pt in past 14-21 Days: No - Vaccine Status Have you recieved a Covid-19 vaccination: No - Review of Systems Constitutional: No Symptoms Eyes: No Symptoms Ears, Nose, & Throat: No Symptoms Respiratory: No Symptoms Cardiac: No Symptoms Abdominal/Gastrointestinal: No Symptoms Genitourinary Symptoms: No Symptoms Musculoskeletal: No Symptoms Skin: Other (Dog bite) Neurological: No Symptoms Psychological: No Symptoms Endocrine: No Symptoms Hematologic/Lymphatic: No Symptoms Immunological/Allergic: No Symptoms All Other Systems: Reviewed and Negative - Past Medical History Pertinent Past Medical History: Yes Neurological History: No Pertinent History ENT History: No Pertinent History Cardiac History: No Pertinent History Respiratory History: No Pertinent History Endocrine Medical History: No Pertinent History Musculoskeletal History: No Pertinent History GI Medical History: No Pertinent History History: No Pertinent History Psycho-Social History: Anxiety, Depression Female Reproductive Disorders: No Pertinent History, Endometriosis Other Medical History: . - Past Surgical History Past Surgical History: Yes Neuro Surgical History: No Pertinent History Cardiac: No Pertinent History Respiratory: No Pertinent History Gastrointestinal: No Pertinent History Genitourinary: No Pertinent History Musculoskeletal: No Pertinent History Female Surgical History: Section, Dilation & Curettage Other Surgical History: overactive lymph node removal - Social History Smoking Status: Current every day smoker How long have you smoked: 15 years Exposure to second hand smoke: No Drug Use: methamphetamines Patient Lives Alone: No - Nursing Vital Signs Nursing Vital Signs: Initial Vital Signs Temperature 98 F 06/15/22 16:22 Pulse Rate 60 06/15/22 16:22 Respiratory Rate 17 06/15/22 16:22 Blood Pressure 89/50 06/15/22 16:22 O2 Sat by Pulse Oximetry 99 06/15/22 16:22 Pain Scale Pain Intensity 10 - Physical Exam General Appearance: no apparent distress, alert, anxiety Eye Exam: PERRL/EOMI, eyes nml inspection Ears, Nose, Throat Exam: normal ENT inspection, moist mucous membranes Neck Exam: normal inspection, non-tender, supple, full range of motion Respiratory Exam: airway intact, No chest tenderness, No respiratory distress Cardiovascular Exam: regular rate/rhythm, normal heart sounds, normal peripheral pulses Gastrointestinal/Abdomen Exam: No tenderness Pelvic Exam: not done Rectal Exam: not done Extremity Exam: normal inspection, normal range of motion, pelvis stable Neurologic Exam: alert, oriented x 3, cooperative, 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, normal mood/affect, nml cerebellar function, nml station & gait, sensation nml Skin Exam: other (Puncture wound from dog bite left posterior calf approximately 3 to 4 mm diameter and similar wound size right posterior hamstring) Lymphatic Exam: No adenopathy SpO2 Interpretation: normal O2 Delivery: Room Air - Course Nursing assessment & vital signs reviewed: Yes Ordered Tests: Medication Summary Discontinued Medications Generic Name Dose Route Start Last Admin Trade Name Freq PRN Reason Stop Dose Admin Diphtheria/Tetanus/Acell Pertussis 0.5 ml 06/15/22 16:59 Tdap --Diph,Pertuss(Acell),Tet Vac/Pf 0.5 Ml Vial IM 06/15/22 17:00 .ONCE ONE - Progress Progress: unchanged, pain not gone completely, re-examined Progress Note: 06/15/22 17:05 Medical decision making: This patient's history was taken directly from the patient. Physical exam was performed and because of the history of a dog bite and the history of patient's codeine side effect of vomiting without an actual true allergic reaction we opted (the patient and I) to provide the patient with Zofran ODT, Augmentin antibiotic and oxycodone/acetaminophen pain medication. Based on the above we will provide the patient with Adacel tetanus injection so her tetanus status is up-to-date. However together, the patient denied decided that discharge planning will be to keep the wounds clean without the use of antibiotic ointment and to cover these wounds with dry bandages and change as needed. She is to take her antibiotics and pain medicine with food and to use the Zofran as needed when taking the narcotic pain medicine. Her medical issue is of low complexity. Counseled pt/family regarding: diagnosis, need for follow-up - Departure Departure Disposition: Home Clinical Impression: Dog bite Condition: Stable Critical Care Time: No Referrals: DOCTOR,NO FAMILY [Primary Care Provider] - Follow up/PCP as directed Additional Instructions: Keep the dog bite site clean daily with soap and water. Do not put antibiotic ointments or creams or lotions on these sites. Cover with a bandage and change every 12-24 hours and as needed. Take your antibiotics and pain medication with food and if needed, use the Zofran antinausea medication. Follow-up with your primary care physician for persistent symptoms. Prescriptions: Ondansetron ODT 4 MG [Zofran Odt 4 mg] 4 mg PO Q6H PRN PRN #10 tablet PRN Reason: Vomiting Oxycodone HCl/Acetaminophen [Percocet 5-325 mg Tablet] 1 each PO Q8H PRN PRN #6 tablet MDD 3 PRN Reason: Moderate To Severe Pain Amoxicillin/Potassium Clav [Augmentin 500-125 Tablet] 1 each PO TID 5 Days #15 tablet
[2022-06-15 16:34] VITALS: BP 89/50; PULSE 60; O2SAT 99
[2022-06-15] MEDS ORDERED: Adacel Vial IM ONE ×2 (16:59→17:04)
== END 2022-06-15 17:20 | disposition home or self-care (01) ==
LOC: ED 16:07
DX: S80.872A Other superficial bite, left lower leg, initial encounter (principal); S70.371A Other superficial bite of right thigh, initial encounter; W54.0XXA Bitten by dog, initial encounter; Z28.310 Unvaccinated for COVID-19; Z79.891 Long term (current) use of opiate analgesic; Z72.0 Tobacco use
CPT/HCPCS: 90471; 90715; 99282